=== PATIENT | female | born 1935 | race Caucasian/White ===

== ENCOUNTER 2016-10-24 08:41 | Outpatient (CLI) ==
[2014-01-26 10:56] VITALS: BMI 24.9
[2016-10-24 12:37] LABS: BASOPHILS # (AUTO) 0.1 K/uL (0-0.2); BASOPHILS % (AUTO) 0.9 % (0.0-3.0); EOSINOPHILS # (AUTO) 0.3 K/ul (0.0-0.7); EOSINOPHILS % (AUTO) 4.5 % (0.0-7.0); HEMATOCRIT 40.2 % (37.0-47.0); HEMOGLOBIN 13.2 g/dl (12.0-16.0); IMMATURE GRANULOCYTE % (AUTO) 0.3 % (0.0-5.0); LYMPHOCYTES # (AUTO) 2.7 K/uL (0.60-3.4); LYMPHOCYTES % (AUTO) 41.7 (10.0-50.0); MEAN CORPUSCULAR HEMOGLOBIN 28.6 pg (27.0-31.0); MEAN CORPUSCULAR HGB CONC 32.8 (31.8-35.4); MONOCYTES # (AUTO) 0.5 K/uL (0.4-2.0); MONOCYTES % (AUTO) 6.9 (0-10); NEUTROPHILS % (AUTO) 45.7; PLATELET COUNT 289 10^3/uL (140-440); RED BLOOD COUNT 4.62 10^6/ul (4.20-5.40); WHITE BLOOD COUNT 6.48 K/ul (4.6-10.2)
[2016-10-24 12:50] LABS: BILIRUBIN,URINE Negative (NEGATIVE); KETONES,URINE Negative (NEGATIVE); LEUKOCYTE ESTERASE ,URINE 1+ (NEGATIVE); NITRITE,URINE Negative (NEGATIVE); PROTEIN,URINE Negative (NEGATIVE); URINE, BLOOD Negative (NEGATIVE)
[2016-10-24 12:51] LABS: ADD URINE MICROSCOPIC YES
[2016-10-24 12:53] LABS: BACTERIA,URINE TRACE (NOT PRESENT)
[2016-10-24 12:55] LABS: ALBUMIN 3.7 g/dL (3.4-5.0); ALBUMIN/GLOBULIN RATIO 1.12; ANION GAP 11.8; BILIRUBIN,TOTAL 0.69 mg/dL (0.00-1.20); BUN/CREATININE RATIO 13.13; CALCIUM 9.2 mg/dL (8.2-10.2); CHOL/HDL RATIO 3.6 (4.5-5.5); CREATININE 0.99 mg/dL (0.60-1.30); POTASSIUM 3.8 mmol/L (3.5-5.10)
== END 2016-10-24 08:42 | disposition home or self-care (01) ==
LOC: LAB 08:41
PROVIDERS: ATTEND General Practice
DX: R73.9 Hyperglycemia, unspecified (principal); R73.03 Prediabetes; I10 Essential (primary) hypertension; E78.5 Hyperlipidemia, unspecified; Z79.899 Other long term (current) drug therapy
CPT/HCPCS: 36415; 80053; 80061; 81001; 83036; 85025

== ENCOUNTER 2017-03-06 11:49 | Outpatient (CLI) | payer OTHER ==
[2014-01-26 10:56] VITALS: BMI 24.9
[2017-03-06 12:40] LABS: BASOPHILS # (AUTO) 0.1 K/uL (0-0.2); BASOPHILS % (AUTO) 1.1 % (0.0-3.0); EOSINOPHILS # (AUTO) 0.3 K/ul (0.0-0.7); EOSINOPHILS % (AUTO) 5.2 % (0.0-7.0); HEMATOCRIT 39.5 % (37.0-47.0); HEMOGLOBIN 13.3 g/dl (12.0-16.0); IMMATURE GRANULOCYTE % (AUTO) 0.3 % (0.0-5.0); LYMPHOCYTES # (AUTO) 2.7 K/uL (0.60-3.4); LYMPHOCYTES % (AUTO) 41.2 (10.0-50.0); MEAN CORPUSCULAR HEMOGLOBIN 29.3 pg (27.0-31.0); MEAN CORPUSCULAR HGB CONC 33.7 (31.8-35.4); MONOCYTES # (AUTO) 0.5 K/uL (0.4-2.0); MONOCYTES % (AUTO) 7.5 (0-10); NEUTROPHILS # (AUTO) 2.9 K/ul (2.0-6.9); NEUTROPHILS % (AUTO) 44.7; PLATELET COUNT 284 10^3/uL (140-440); RED BLOOD COUNT 4.54 10^6/ul (4.20-5.40); WHITE BLOOD COUNT 6.55 K/ul (4.6-10.2)
[2017-03-06 12:49] LABS: BILIRUBIN,URINE Negative (NEGATIVE); KETONES,URINE Negative (NEGATIVE); LEUKOCYTE ESTERASE ,URINE 1+ (NEGATIVE); NITRITE,URINE Negative (NEGATIVE); PROTEIN,URINE Negative (NEGATIVE); URINE, BLOOD Negative (NEGATIVE)
[2017-03-06 12:53] LABS: ADD URINE MICROSCOPIC YES
[2017-03-06 12:57] LABS: ALBUMIN 3.8 g/dL (3.4-5.0); ALBUMIN/GLOBULIN RATIO 1.15; ANION GAP 12.9; BILIRUBIN,TOTAL 0.68 mg/dL (0.00-1.20); BUN/CREATININE RATIO 15.23; CALCIUM 9.3 mg/dL (8.2-10.2); CHOL/HDL RATIO 2.8 (4.5-5.5); CREATININE 1.05 mg/dL (0.60-1.30); POTASSIUM 3.9 mmol/L (3.5-5.10); TOTAL PROTEIN 7.1 g/dL (5.8-8.1)
[2017-03-06 13:02] LABS: BACTERIA,URINE TRACE (NOT PRESENT)
== END 2017-03-06 11:50 | disposition home or self-care (01) ==
LOC: LAB 11:49
PROVIDERS: ATTEND General Practice
DX: E78.5 Hyperlipidemia, unspecified (principal); I10 Essential (primary) hypertension; R73.03 Prediabetes; Z79.899 Other long term (current) drug therapy
CPT/HCPCS: 36415; 80053; 80061; 81001; 85025

== ENCOUNTER 2017-05-08 15:46 | Outpatient (CLI) ==
[2014-01-26 10:56] VITALS: BMI 24.9
[2017-05-08 16:07] LABS: FLU INTERNAL QC INTERNAL QC VALID; RAPID FLU A NEGATIVE (NEGATIVE); RAPID FLU B NEGATIVE (NEGATIVE)
[2017-05-08 16:12] LABS: BASOPHILS # (AUTO) 0.1 K/uL (0-0.2); BASOPHILS % (AUTO) 0.9 % (0.0-3.0); EOSINOPHILS # (AUTO) 0.3 K/ul (0.0-0.7); EOSINOPHILS % (AUTO) 3.6 % (0.0-7.0); HEMATOCRIT 40.9 % (37.0-47.0); HEMOGLOBIN 13.8 g/dl (12.0-16.0); IMMATURE GRANULOCYTE % (AUTO) 0.4 % (0.0-5.0); LYMPHOCYTES # (AUTO) 1.9 K/uL (0.60-3.4); LYMPHOCYTES % (AUTO) 23.6 (10.0-50.0); MEAN CORPUSCULAR HGB CONC 33.7 (31.8-35.4); MEAN CORPUSCULAR VOLUME 85.9 fl (81.0-99.0); MONOCYTES # (AUTO) 0.7 K/uL (0.4-2.0); MONOCYTES % (AUTO) 8.6 (0-10); NEUTROPHILS # (AUTO) 5.1 K/ul (2.0-6.9); NEUTROPHILS % (AUTO) 62.9; PLATELET COUNT 290 10^3/uL (140-440); RED BLOOD COUNT 4.76 10^6/ul (4.20-5.40); WHITE BLOOD COUNT 8.15 K/ul (4.6-10.2)
== END 2017-05-08 15:47 | disposition home or self-care (01) ==
LOC: LAB 15:46
PROVIDERS: ATTEND General Practice
DX: J02.9 Acute pharyngitis, unspecified (principal)
CPT/HCPCS: 36415; 85025; 87651; 87804; 87880

== ENCOUNTER 2017-09-19 13:33 | Outpatient (CLI) | payer OTHER ==
[2014-01-26 10:56] VITALS: BMI 24.9
[2017-09-19 13:46] LABS: FLU INTERNAL QC INTERNAL QC VALID; RAPID FLU A NEGATIVE (NEGATIVE); RAPID FLU B NEGATIVE (NEGATIVE)
== END 2017-09-19 13:34 | disposition home or self-care (01) ==
LOC: LAB 13:33
PROVIDERS: ATTEND General Practice
DX: J02.9 Acute pharyngitis, unspecified (principal); R05 Cough; R09.81 Nasal congestion; R68.83 Chills (without fever)
CPT/HCPCS: 87651; 87804; 87880

== ENCOUNTER 2017-09-25 22:36 | Outpatient (CLI) ==
[2014-01-26 10:56] VITALS: BMI 24.9
== END 2017-09-25 22:37 | disposition home or self-care (01) ==
LOC: NONPT 22:36
PROVIDERS: ATTEND General Practice
DX: R53.83 Other fatigue (principal)

== ENCOUNTER 2017-10-08 13:20 | Emergency (ER) ==
[2017-10-08 13:32] VITALS: TEMP 97.9; BMI 25.4
--- NOTE | 2017-10-08 14:20 | ED.PDOC ---
General ED Provider: Dr. KYLAH GONZALEZ Chief Complaint: Fall Stated Complaint: Was walking at home in a [place] [address], stumpted her foot against a metal plate in the floor and fell forward stiking forhead against a wooded shelf. Denied LOC Time Seen by Physician: 02:00 Mode of Arrival: Ambulance (Sustained a fall in her residence resultingind a closed head injury) Information Source: Patient, EMT Exam Limitations: No limitations [facility] and Triage Documentation Reviewed and Agree: Yes Reviewed sepsis parameters & appropriate labs ordered?: Yes System Inflammatory Response Syndrome: Not Applicable Sepsis Protocol: For patient's 13 years and over: Temp is 96.8 and below OR 101 and greater Pulse >90 BPM Resp >20/minute Acutely Altered Mental Status Are patient's symptoms suggestive of a new infection, such as: -Pneumonia -Skin, Soft Tissue -Endocarditis -UTI -Bone, Joint Infection -Implantable Device -Acute Abdominal Infection -Wound Infection -Meningitis -Blood Stream Catheter Infection -Unknown System Inflammatory Response Syndrome: Not Applicable Review of Systems - Review Of Systems Constitutional: Reports: No symptoms Eyes: Reports: No symptoms Ears, Nose, Mouth, Throat: Reports: No symptoms Respiratory: Reports: No symptoms Cardiac: Reports: Lightheadedness. Denies: Chest pain, Irregular heart rate, Palpitations GI: Reports: No symptoms : Reports: No symptoms Musculoskeletal: Reports: Neck pain, Other (forehead hematoma /contusion) Skin: Reports: No symptoms Neurological: Reports: Headache. Denies: Anxiety, Depressed, Emotional problems , Cognitive dysfunction, Numbness, [place] seizures Endocrine: Reports: No symptoms Hematologic/Lymphatic: Reports: No symptoms All Other Systems: Reviewed and Negative Past Medical History - Past Medical History Previously Healthy: Yes Endocrine: Reports: None Cardiovascular: Reports: Hypertension Respiratory: Reports: None Hematological: Reports: None Gastrointestinal: Reports: None Genitourinary: Reports: None Neuro/Psych: Reports: None Musculoskeletal: Reports: None Cancer: Reports: None Last Menstrual Period: menopause - Surgical History General Surgical History: Reports: None - Social History Smoking Status: Never smoker Hx Substance Use: No Alcohol Screening: None - Immunizations Tetanus Shot up to Date: Yes Physical Exam - Physical Exam Appearance: Well-appearing Ill-appearing: Mild Pain Distress: None Eyes: MICHAEL, EOMI, Conjunctiva clear ENT: Ears normal, Nose normal, Oropharynx normal Neck: Supple Respiratory: Airway patent, Breath sounds clear, Breath sounds equal Cardiovascular: RRR, Pulses normal, No rub, No murmur GI/: Soft, Nontender, No masses, Bowel sounds normal Musculoskeletal: Normal strength, ROM intact, No edema, No calf tenderness Skin: Warm, Dry, Normal color Neurological: Sensation intact, Motor intact Psychiatric: Affect appropriate, Mood appropriate Re-Evaluation - Re-Evaluation Time of Re-Evaluation: 16:00 Status: Improved Vital Signs Stable: Yes Appearance: NAD Lungs: Clear Skin: Warm and Dry Neuro: Alert and Oriented X3 CV: Other (slightly dizzy upon standing. Reclined and checked orthostatics after 15 minutes-tolerated well) Course - Course Hematology/Chemistry: 10/08/17 14:32 10/08/17 14:32 Orders, Labs, Meds: Lab Review 10/08/17 10/08/17 14:32 14:32 WBC 8.61 RBC 4.20 Hgb 12.5 Hct 36.1 L MCV 86.0 MCH 29.8 MCHC 34.6 RDW Coeff of Catherine 13.1 Plt Count 261 Immature Gran % (Auto) 0.2 Neut % (Auto) 58.9 Lymph % (Auto) 29.4 [place] % (Auto) 7.4 Eos % (Auto) 3.3 Baso % (Auto) 0.8 Immature Gran # (Auto) 0.0 Neut # 5.1 Lymph # 2.5 [place] # 0.6 Eos # 0.3 Baso # 0.1 Sodium 141 Potassium 4.1 Chloride 108 H Carbon Dioxide 27 Anion Gap 10.1 BUN 15 Creatinine 0.87 Estimated GFR (MDRD) 63.00 BUN/Creatinine Ratio 17.24 Glucose 101 Calcium 9.0 Total Bilirubin 0.3 AST 22 ALT 22 Alkaline Phosphatase 88 Total Protein 6.8 Albumin 3.4 Globulin 3.4 Albumin/Globulin Ratio 1.00 Orders Category Date Time Status EKG-(ED ONLY) Stat CARDIO 10/08/17 14:23 Completed NPO REMINDER: IMAGING ONCE CARE 10/08/17 14:23 Completed Orthostatic [ED ORTHOSTATIC VITAL SIGNS] Q20MIN EMERGENCY 10/08/17 16:15 Active CBC W/ AUTO DIFF Stat LAB 10/08/17 14:32 Completed CMP [COMPREHENSIVE METABOLIC PANEL] Stat LAB 10/08/17 14:[address] CERVICAL SPINE W/O CONTRAST Stat RADS 10/08/17 14:[address] HEAD W/O CONTRAST Stat RADS 10/08/17 14:23 Completed Vital Signs: Temp Pulse Resp BP Pulse Ox 10/08/17 16:17 68 146/79 H 10/08/17 13:21 97.9 F 72 20 127/75 95 Departure - Departure Time of Disposition: 16:35 Disposition: HOME SELF-CARE Discharge Problem: Fall, Forehead contusion Instructions: Head Injury (ED) Condition: Good Pt referred to PMD for follow-up: Yes (1 week) Allergies/Adverse Reactions: Allergies No Known Drug Allergies Allergy (Verified 10/08/17 13:28) Home Medications: Ambulatory Orders Omeprazole [Prilosec] 20 mg PO QDAC 11/28/13 Simvastatin 40 mg PO BEDTIME 11/28/13 Folic Acid 1 mg PO DAILY 04/22/15 Vitamin E 400 unit PO DAILY 04/22/15 Ascorbate Calcium [Vitamin C] 500 mg PO DAILY 06/28/15
--- NOTE | 2017-10-08 15:00 | CT ---
EXAM: CT of the head without contrast History: Head trauma. Technique: Multiplanar CT images through the head were obtained without the administration of IV con trast Findings: Fluid and mucosal thickening within the left maxillary sinus. Near-complete opacification of the right maxillary sinus. Small left mastoid effusion. No acute calvarial abnormalities. Smal l to moderate frontal scalp hematoma. Intracranially the ventricular and cisternal spaces are normal in size, shape and configuration for a patient of this age. No dominant mass or midline shift. No hydrocephalous. No acute intracranial h emorrhage or abnormal extraaxial fluid collections. Impression: 1. No acute intracranial process. 2. Frontal scalp hematoma. 3. Paranasal sinusitis
--- NOTE | 2017-10-08 15:03 | CT ---
EXAM: CT of the cervical spine without contrast History: Head and neck trauma. Technique: Multiplanar CT images through the cervical spine were obtained without the administration of IV contrast Findings: The visualized upper lungs demonstrate scarring. The visualized airway remains patent. L eft mastoid effusion. No acute fracture or subluxation. No prevertebral soft tissue swelling. Predental space is not wide darion. Moderate disc space narrowing at C5-6 and C6-7 with endplate sclerosis and osteophyte formation . Bony spinal canal is not significantly compromised. Multilevel bilateral bony neural foraminal na rrowing secondary to uncovertebral and facet hypertrophy which is moderate to severe on the left at C 5-6. Impression: No acute osseous abnormality of the cervical spine. Degenerative changes.
[2017-10-08 16:18] VITALS: BP 245/79
== END 2017-10-08 17:00 | disposition home or self-care (01) ==
LOC: ED 13:20
DX: S00.83XA Contusion of other part of head, initial encounter (principal); R51 Headache; R42 Dizziness and giddiness; I10 Essential (primary) hypertension; W19.XXXA Unspecified fall, initial encounter
CPT/HCPCS: 36415; 80053; 85025; 93005; 93010; 99283

== ENCOUNTER 2018-03-03 11:39 | Outpatient (CLI) | END 2018-03-03 11:40 | disposition home or self-care (01) | LOC: FCC-LAB 11:39 | PROVIDERS: ATTEND General Practice | DX: E78.5 Hyperlipidemia, unspecified (principal); R73.03 Prediabetes; I10 Essential (primary) hypertension; Z79.899 Other long term (current) drug therapy | CPT/HCPCS: 36415; 80053; 80061; 81001; 83036; 84443; 85025; 87086 ==

== ENCOUNTER 2018-10-02 14:56 | Outpatient (CLI) | END 2018-10-02 14:57 | disposition home or self-care (01) | LOC: LAB 14:56 → RHC-LAB 14:57 | PROVIDERS: ATTEND Nurse Practitioner Family | DX: J02.9 Acute pharyngitis, unspecified (principal) | CPT/HCPCS: 87651 ==

== ENCOUNTER 2021-07-23 11:07 | Inpatient (IN) ==
[2021-07-23] MEDS ORDERED: SOLU-MEDROL 125 MG IVP ONE (11:32)
[2021-07-23] MEDS ORDERED: VENTOLIN HFA (PER PUFF-WITH SPACER) IH ONE (11:32)
[2021-07-23] MEDS ORDERED: SODIUM CHLORIDE 500 ML IV STA (11:38)
[2021-07-23 11:58] LABS: BASOPHILS % (AUTO) 0.3 % (0.0-3.0); HEMATOCRIT 33.4 % (37.0-47.0); HEMOGLOBIN 11.6 g/dl (12.0-16.0); IMMATURE GRANULOCYTE % (AUTO) 0.7 % (0.0-5.0); LYMPHOCYTES # (AUTO) 1.2 K/uL (0.60-3.4); LYMPHOCYTES % (AUTO) 20.3 (10.0-50.0); MEAN CORPUSCULAR HEMOGLOBIN 29.1 pg (27.0-31.0); MEAN CORPUSCULAR HGB CONC 34.7 (31.8-35.4); MEAN CORPUSCULAR VOLUME 83.7 fl (81.0-99.0); MONOCYTES # (AUTO) 0.6 K/uL (0.4-2.0); MONOCYTES % (AUTO) 9.5 (0-10); NEUTROPHILS # (AUTO) 4.2 K/ul (2.0-6.9); NEUTROPHILS % (AUTO) 69.2 % (42.2-75.2); PLATELET COUNT 188 10^3/uL (140-440); RDW COEFFICIENT OF VARIATION 13.3 % (11.6-14.8); RED BLOOD COUNT 3.99 10^6/ul (4.20-5.40); WHITE BLOOD COUNT 6.12 K/ul (4.6-10.2)
[2021-07-23] MEDS ORDERED: SPIRIVA IH SCH (12:00)
[2021-07-23] MEDS ORDERED: ATROVENT HFA INHALER (PER PUFF-WITH SPACER) IH ONE (12:00)
[2021-07-23 12:19] LABS: ALANINE AMINOTRANSFERASE 39.4 U/L (0-35); ALBUMIN 3.61 g/dL (3.5-5.0); ALKALINE PHOSPHATASE 60.1 U/L (53-141); ASPARTATE AMINO TRANSFERASE 63.2 U/L (14-36); BILIRUBIN,TOTAL 0.34 mg/dL (0.2-1.3); BLOOD UREA NITROGEN 14.4 mg/dL (7-17); CALCIUM 8.73 mg/dL (8.4-10.2); CHLORIDE 102.8 mmol/L (98-107); CREATININE 0.92 mg/dL (0.60-1.30); GLUCOSE 109.3 mg/dL (74-106); POTASSIUM 3.85 mmol/L (3.5-5.1); SODIUM 133.8 mmol/L (134.5-145); TOTAL PROTEIN 6.62 g/dL (6.3-8.2)
--- NOTE | 2021-07-23 12:21 | CT ---
EXAM: CT chest without contrast HISTORY: Shortness of breath and COVID-19 COMPARISON: Chest x-ray 07/17/[address] chest 01/03/2018 TECHNIQUE: Serial axial images of the chest were obtained from the lung apices to the upper abdomen without contrast. These were viewed in multiple planes. FINDINGS: The thyroid is normal. The visualized vessels demonstrate mild calcific atherosclerotic d isease without aneurysm or stenosis. The heart is normal in size without pericardial effusion. Ther e are no pathologically enlarged mediastinal or hilar lymph nodes. There is no pneumothorax or effusion. There is patchy nodular ground-glass and both lungs most prono unced in the periphery. There is no discrete consolidation. The airways are patent. Limited views of the soft tissues in the upper abdomen are unremarkable. There is degenerative disea se of the spine. IMPRESSION: 1. Patchy nodular ground-glass and both lungs are suggestive of pneumonia. 2. Mild calcific atherosclerotic disease. All CT scans are performed using dose optimization techniques as appropriate to the performed exam an d include at least one of the following: Automated exposure control, adjustment of the mA and/or kV according t o size, and the use of iterative reconstruction technique.
[2021-07-23 12:28] LABS: ABG PH 7.64 (7.35-7.45); BEecf -0.4 (-2.0-3.0); COHb 1.3 (0.5-1.5); HCO3 20.5 (21-28); MetHb 0.6 (0-1.5); TCO2 21.1 (19-24); sO2 95.8 % (94-98)
[2021-07-23 12:29] LABS: ABG O2 HGB 94.9 % (95-100); tHb 11.9 g/dl (11.7-17.4)
[2021-07-23 12:31] LABS: TROPONIN I < 0.012 ng/ml (0.0000-0.120)
[2021-07-23] MEDS ORDERED: TYLENOL PO PRN (14:36)
[2021-07-23 14:58] VITALS: BMI 23.6
[2021-07-23] MEDS ORDERED: PRILOSEC PO PRN (14:59)
--- NOTE | 2021-07-23 15:04 | ED.PDOC ---
General ED Provider: Dr. DEJAH HOLT MD Chief Complaint: Shortness of Air Stated Complaint: weakness and increased SOB. Pt has the covid-19 pneumonia. Time Seen by Provider: 07/23/21 11:10 Mode of Arrival: Wheelchair Information Source: Patient and Family Exam Limitations: No limitations Primary Care Provider: VAL JIMÉNEZ APRN Nursing and Triage Documentation Reviewed and Agree: Yes Does patient meet sepsis criteria?: No If yes, has appropriate treatment been initiated?: No System Inflammatory Response Syndrome: Not Applicable Sepsis Protocol: For patient's 13 years and over: Temp is 96.8 and below OR 101 and greater Pulse >90 BPM Resp >20/minute Acutely Altered Mental Status Are patient's symptoms suggestive of a new infection, such as: -Pneumonia -Skin, Soft Tissue -Endocarditis -UTI -Bone, Joint Infection -Implantable Device -Acute Abdominal Infection -Wound Infection -Meningitis -Blood Stream Catheter Infection -Unknown Respiratory Complaint Exam Shortness of Air Complaint/Exam Onset/Duration: worse SOB x 3 days. Symptoms Are: Still present Timing: Constant Initial Severity: Mild Current Severity: Moderate Character: Reports Dyspnea at rest and Dyspnea on exertion Aggravating: Reports None Alleviating: Reports Bronchodilators Associated Signs and Symptoms: Reports Cough, Wheezing and Labored breathing History of Healthcare-Acquired Pneumonia: No Home Oxygen Use: No Recent Stress Test: No Respiratory Distress: Mild Stridor Present: No Tracheal Deviation: No Subcutaneous Emphysema: No Accessory Muscle Use: Yes Retractions: Intercostal Diminished Breath Sounds: Yes Unable to Speak Full Sentences: No Fatigue: No Leg Swelling: No Wing's Sign Present: No Grunting Respirations: No Kussmaul Respirations: No Differential Diagnoses: CHF, COPD Exacerbation, Pneumonia, SARS, Bronchitis, Bronchospasm and URI Quality Indicators For Pneumonia/CAP: Antibiotics in 6hr-admit, SpO2 assessed and Vital signs Review of Systems Review Of Systems Constitutional: Reports Weakness and Loss of appetite Eyes: Reports No symptoms Ears, Nose, Mouth, Throat: Reports No symptoms Respiratory: Reports No symptoms and Cough Cardiac: Reports No symptoms GI: Reports No symptoms and Poor appetite : Reports No symptoms Musculoskeletal: Reports No symptoms Skin: Reports No symptoms Neurological: Reports No symptoms Endocrine: Reports No symptoms Hematologic/Lymphatic: Reports No symptoms All Other Systems: Reviewed and Negative [facility] Medical History Colonoscopy refused Gastroesophageal reflux disease Hyperlipidemia Mammogram declined Family History Mother Diabetes, Onset Age: 90 FATHER Diabetes, Onset Age: 50 Social History Smoking and tobacco status: Never smoker Alcohol intake: never Counseling given: No Counseling provided: none Substance use type: does not use Counseling given: No Counseling provided: none Pat/rastafarian: OTHER Special pat needs: No Agree to transfusion: Yes Household members: none Marital status: W / Lives independently: Yes service: No shelter: No Current occupational status: retired Current occupational exposures/hazards: No History of recent travel: No Sexually active: No Do you think of yourself as: straight/heterosexual Current gender identity: female Seatbelt use: always Surgical History History of tubal ligation Status post myringotomy with insertion of tube Female Reproductive History Menstrual Hx Hysterectomy: No Hx Tubal Ligation: Yes Physical Exam Physical Exam Appearance: Reports Ill-appearing and Well-nourished Ill-appearing: Mild Pain Distress: None Eyes: Reports MICHAEL, EOMI and Conjunctiva clear ENT: Reports Ears normal, Nose normal and Oropharynx normal Neck: Supple Respiratory: Reports Airway patent, Crackles, Rhonchi, Wheezes and Retractions Cardiovascular: Reports RRR, Pulses normal, No rub and No murmur GI/: Reports Soft, Nontender, No masses, Bowel sounds normal and No Organomegaly Musculoskeletal: Reports Normal strength, ROM intact, No edema and No calf tenderness Skin: Reports Warm, Dry and Normal color Neurological: Reports Sensation intact, Motor intact, Reflexes intact, Cranial nerves intact, Alert and Oriented Psychiatric: Reports Affect appropriate and Mood appropriate Interpretation Radiology Interpretation Radiology Interpretation By: Radiologist Exam Interpreted: CT Scan Xray Comments: covid-19 pneumonia. Re-Evaluation Re-Evaluation Time of Re-Evaluation: 12:05 Pain Level: 0 Appearance: NAD Lungs: Other (crackles, wheezes and rhonchi.) Skin: Warm and Dry Neuro: Alert and Oriented X3 CV: RRR Critical Care Note Critical Care Note Total Critical Care Time (mins): 30 Course Course Hematology/Chemistry: 07/23/21 11:52 07/23/21 11:52 Orders, Labs, Meds: Lab Review 07/23/21 07/23/21 07/23/21 11:52 11:52 11:52 WBC 6.12 RBC 3.99 L Hgb 11.6 L Hct 33.4 L MCV 83.7 MCH 29.1 MCHC 34.7 RDW Coeff of Catherine 13.3 Plt Count 188 Immature Gran % (Auto) 0.7 Neut % (Auto) 69.2 Lymph % (Auto) 20.3 [place] % (Auto) 9.5 Eos % (Auto) 0.0 Baso % (Auto) 0.3 Neut # (Auto) 4.2 Lymph # (Auto) 1.2 [place] # (Auto) 0.6 Eos # (Auto) 0.0 Baso # (Auto) 0.0 Immature Gran # (Auto) 0.0 Puncture Site Base Excess O2 Saturation ABG pH ABG pCO2 ABG pO2 ABG HCO3 ABG Total CO2 [place] Test Hemoglobin Oxyhemoglobin Carboxyhemoglobin Total Hemoglobin FiO2 % Sodium 133.8 L Potassium 3.85 Chloride 102.8 Carbon Dioxide 23.0 Anion Gap 11.85 BUN 14.4 Creatinine 0.92 Estimated GFR (MDRD) 58.00 BUN/Creatinine Ratio 15.65 Glucose 109.3 H Lactic Acid 1.84 Calcium 8.73 Total Bilirubin 0.34 AST 63.2 H ALT 39.4 H Alkaline Phosphatase 60.1 Troponin I < 0.012 NT-Pro-B Natriuret Pep 227.000 Total Protein 6.62 Albumin 3.61 Globulin 3.01 Albumin/Globulin Ratio 1.19 07/23/21 11:55 WBC RBC Hgb Hct MCV MCH MCHC RDW Coeff of Catherine Plt Count Immature Gran % (Auto) Neut % (Auto) Lymph % (Auto) [place] % (Auto) Eos % (Auto) Baso % (Auto) Neut # (Auto) Lymph # (Auto) [place] # (Auto) Eos # (Auto) Baso # (Auto) Immature Gran # (Auto) Puncture Site Rrad Base Excess -0.4 O2 Saturation 95.8 ABG pH 7.64 H* ABG pCO2 19.0 L ABG pO2 63.0 L ABG HCO3 20.5 L ABG Total CO2 21.1 [place] Test Pos Hemoglobin 0.6 Oxyhemoglobin 94.9 L Carboxyhemoglobin 1.3 Total Hemoglobin 11.9 FiO2 % 21.0 Sodium Potassium Chloride Carbon Dioxide Anion Gap BUN Creatinine Estimated GFR (MDRD) BUN/Creatinine Ratio Glucose Lactic Acid Calcium Total Bilirubin AST ALT Alkaline Phosphatase Troponin I NT-Pro-B Natriuret Pep Total Protein Albumin Globulin Albumin/Globulin Ratio Orders Category Date Time Status ABG DRAW REQUEST Stat CARDIO 07/23/21 11:33 Completed EKG-(ED ONLY) Stat CARDIO 07/23/21 11:32 Completed METERED DOSE INHALATION Routine CARDIO 07/23/21 11:38 Completed ED IV/MEDIPORT/POWERPORT .ONCE EMERGENCY 07/23/21 11:38 Active ABG COOX Stat LAB 07/23/21 11:55 Completed CBC W/ AUTO DIFF Stat LAB 07/23/21 11:52 Completed COMPREHENSIVE METABOLIC PANEL Stat LAB 07/23/21 11:52 Completed COVID-19 ANTIGEN TEST Stat LAB 07/23/21 Ordered LACTIC ACID Stat LAB 07/23/21 11:52 Completed NT-PROBNP Stat LAB 07/23/21 11:52 Completed TROPONIN I Stat LAB 07/23/21 11:52 Completed 0.9 % Sodium Chloride [Saline Flush] MEDS 07/23/21 11:38 Active 1 syr IVF PRN PRN Albuterol Inhaler(with Spacer) [Ventolin Hfa (Per Puff- MEDS 07/23/21 11:32 Discontinued with Spacer)] 2 puff IH ONCE ONE Ipratropium Inhaler(Spacer) [Atrovent Hfa Inhaler (Per MEDS 07/23/21 12:00 Discontinued Puff-with Spacer)] 2 puff IH ONCE ONE Methylprednisolone Sod Succ/Pf [Solu-Medrol 125 mg] MEDS 07/23/21 11:32 Discontinued 125 mg IVP ONCE ONE Sodium Chloride 0.9% [Sodium Chloride] 500 ml MEDS 07/23/21 11:[address] CHEST W/O CONTRAST Stat RADS 07/23/21 11:32 Completed Medications Generic Name Dose Route Start Last Admin Trade Name Freq PRN Reason Stop Dose Admin Acetaminophen 650 mg 07/23/21 14:36 Acetaminophen 325 Mg Tablet PO Q8H PRN Mild/Moderate Pain Albuterol Sulfate 2 puff 07/23/21 20:00 Albuterol Sulfate (Ventolin Hfa) 18 Gm 1 Puff With Spacer IH RTQID LIZANDRO Azithromycin 500 mg 07/23/21 15:00 Azithromycin 250 Mg Tablet PO 07/26/21 14:59 DAILY [facility] Folic Acid 1 mg 07/24/21 09:00 Folic Acid 1 Mg Tablet PO DAILY [facility] Sodium Chloride 1,000 mls @ 75 mls/hr 07/23/21 15:00 Sodium Chloride IV .[id number] [facility] CEFTRIAXONE/D5W 1 GM PREMIX 1 gm in 50 mls @ 75 mls/hr 07/23/21 15:00 Rocephin 1 Gm/50 Ml D5w IV 07/26/21 14:59 DAILY [facility] REMDESIVIR SOLUTION 100 mg/ 270 mls @ 270 mls/hr 07/24/21 09:00 Sodium Chloride IV DAILY [facility] Ipratropium [place] 2 puff 07/23/21 20:00 Ipratropium [place] 12.9 Gm Hfa Inhaler Per Puff With Spacer IH RTQID [facility] Levothyroxine Sodium 25 mcg 07/23/21 15:00 Levothyroxine Sodium 25 Mcg Tablet PO QDAY [facility] Methylprednisolone Sodium Succinate 125 mg 07/23/21 21:00 Methylprednisolone Sod Succ/Pf 125 Mg/2 Ml Vial IVP Q8HR [facility] Non-Formulary Medication 500 mg 07/24/21 09:00 Ascorbate Calcium (Vitamin C) PO DAILY [facility] Non-Formulary Medication 325 mg 07/25/21 09:00 Aspirin,Buffd-Calcium Carb-Mag PO EVERY OTHER DAY [facility] Non-Formulary Medication 2 gm 07/23/21 21:00 Icosapent Ethyl PO BID [facility] Omeprazole 20 mg 07/23/21 14:59 Omeprazole 20 Mg Capsule.Dr PO QDAC PRN Heartburn Simvastatin 40 mg 07/23/21 15:00 Simvastatin 40 Mg Tablet PO .bedtime [facility] Sodium Chloride 1 syr 07/23/21 11:38 0.9% Sodium Chloride 10 Ml Disp.Syrin IVF PRN PRN To flush IV Discontinued Medications Generic Name Dose Route Start Last Admin Trade Name Freq PRN Reason Stop Dose Admin Albuterol Sulfate 2 puff 07/23/21 11:32 07/23/21 12:29 Albuterol Sulfate (Ventolin Hfa) 18 Gm 1 Puff With Spacer IH 07/23/21 11:33 2 puff ONCE ONE Administration Sodium Chloride 500 mls @ 500 mls/hr 07/23/21 11:38 07/23/21 12:40 Sodium Chloride IV 07/23/21 12:37 500 mls/hr BOLUS STA Administration Ipratropium [place] 2 puff 07/23/21 12:00 07/23/21 12:29 Ipratropium [place] 12.9 Gm Hfa Inhaler Per Puff With Spacer IH 07/23/21 12:01 2 puff ONCE ONE Administration Methylprednisolone Sodium Succinate 125 mg 07/23/21 11:32 07/23/21 12:40 Methylprednisolone Sod Succ/Pf 125 Mg/2 Ml Vial IVP 07/23/21 11:33 125 mg ONCE ONE Administration Vital Signs: Temp Pulse Resp BP Pulse Ox 07/23/21 12:30 99 07/23/21 11:07 97.8 F 83 16 119/69 96 Discharge Plan Discharge Patient Disposition: ADMITTED INPATIENT Discharge Problem: Pneumonia due to 2019-nCoV, Weakness generalized ED Provider: DEJAH HOLT Condition: Stable Physician Progress Note: []Pt for admission: see orders.
[2021-07-23] MEDS: ZITHROMAX PO SCH (15:09)
[2021-07-23] MEDS: ROCEPHIN 1 GM/50 ML D5W 1 GM/50 ML BAG IV SCH (15:09)
[2021-07-23] MEDS: SODIUM CHLORIDE 1,000 ML IV SCH (15:15)
[2021-07-23] MEDS: SYNTHROID PO SCH (15:17)
[2021-07-23 16:11] LABS: MOLECULAR FLU A NEGATIVE BY NAAT (NEGATIVE); MOLECULAR FLU B NEGATIVE BY NAAT (NEGATIVE)
[2021-07-23] MEDS: ATROVENT HFA INHALER (PER PUFF-WITH SPACER) IH SCH (20:10)
[2021-07-23] MEDS: VENTOLIN HFA (PER PUFF-WITH SPACER) IH SCH (20:10)
[2021-07-23] MEDS: SOLU-MEDROL 125 MG IVP SCH (21:49)
[2021-07-23] MEDS: ZOCOR PO SCH (21:49)
[2021-07-24 00:35] LABS: BILIRUBIN,URINE Negative (NEGATIVE); CLARITY,URINE Clear (CLEAR); COLOR,URINE Yellow (YELLOW); GLUCOSE, URINE (UA) 2+ (NEGATIVE); KETONES,URINE Trace (NEGATIVE); LEUKOCYTE ESTERASE ,URINE Negative (NEGATIVE); NITRITE,URINE Negative (NEGATIVE); PROTEIN,URINE Negative (NEGATIVE); URINE, BLOOD Negative (NEGATIVE); UROBILINOGEN,URINE 0.2 (0.2)
[2021-07-24] MEDS: ATROVENT HFA INHALER (PER PUFF-WITH SPACER) IH SCH ×4 (04:55→20:00)
[2021-07-24] MEDS: VENTOLIN HFA (PER PUFF-WITH SPACER) IH SCH ×4 (04:55→20:00)
[2021-07-24] MEDS: SODIUM CHLORIDE 1,000 ML IV SCH ×2 (04:59→19:25)
[2021-07-24] MEDS: SOLU-MEDROL 125 MG IVP SCH (05:48)
[2021-07-24] MEDS: SYNTHROID PO SCH (06:04)
[2021-07-24 08:34] LABS: PROTHROMBIN TIME 9.6 SEC (9.3-11.0)
[2021-07-24] MEDS ORDERED: VEKLURY 200 MG in SODIUM CHLORIDE 250 ML IV ONE ×4 (09:00)
[2021-07-24] MEDS: FOLIC ACID PO SCH (09:46)
[2021-07-24] MEDS: ZITHROMAX PO SCH (09:47)
[2021-07-24] MEDS: OMEGA-3 FISH OIL PO SCH ×2 (09:47→20:54)
[2021-07-24] MEDS: VITAMIN C PO SCH (09:47)
[2021-07-24] MEDS: ROCEPHIN 1 GM/50 ML D5W 1 GM/50 ML BAG IV SCH (09:48)
[2021-07-24] MEDS: ASPIRIN EC PO SCH (09:54)
[2021-07-24] MEDS ORDERED: VEKLURY 100 MG in SODIUM CHLORIDE 250 ML IV ONE (12:00)
[2021-07-24] MEDS: DECADRON IM SCH (12:36)
[2021-07-24] MEDS: PEPCID PO SCH ×2 (12:39→20:54)
[2021-07-24] MEDS: VITAMIN D PO SCH (12:40)
[2021-07-24] MEDS: ZOCOR PO SCH (20:54)
[2021-07-25] MEDS: VENTOLIN HFA (PER PUFF-WITH SPACER) IH SCH ×4 (04:55→20:05)
[2021-07-25] MEDS: ATROVENT HFA INHALER (PER PUFF-WITH SPACER) IH SCH ×4 (04:55→20:00)
[2021-07-25 04:56] LABS: ABG O2 HGB 92.9 % (95-100); ABG PH 7.49 (7.35-7.45); BEecf -2.7 (-2.0-3.0); HCO3 20.6 (21-28); MetHb 0.7 (0-1.5); TCO2 21.4 (19-24); tHb 10.6 g/dl (11.7-17.4)
[2021-07-25] MEDS: SYNTHROID PO SCH (05:40)
[2021-07-25] MEDS: PEPCID PO SCH ×2 (05:40→17:13)
[2021-07-25] MEDS: SODIUM CHLORIDE 1,000 ML IV SCH ×2 (08:42→22:11)
[2021-07-25] MEDS: ROCEPHIN 1 GM/50 ML D5W 1 GM/50 ML BAG IV SCH (08:43)
[2021-07-25] MEDS ORDERED: NON-FORMULARY MEDICATION (Aspirin,Buffd-Calcium Carb-Mag 325 MG tablet) PO SCH (09:00)
[2021-07-25] MEDS: VITAMIN D PO SCH (09:01)
[2021-07-25] MEDS: VITAMIN C PO SCH (09:02)
[2021-07-25] MEDS: OMEGA-3 FISH OIL PO SCH ×2 (09:02→20:51)
[2021-07-25] MEDS: FOLIC ACID PO SCH (09:02)
[2021-07-25] MEDS: DECADRON IM SCH (09:02)
[2021-07-25] MEDS: ZITHROMAX PO SCH (09:02)
--- NOTE | 2021-07-25 10:01 | ED.PDOC ---
General ED Provider: Dr. KYLAH GONZALEZ Chief Complaint: Shortness of Air Stated Complaint: Shortness of breath with minimal activity and at rest, Cough and congestion Time Seen by Provider: 07/23/21 11:10 Mode of Arrival: Wheelchair Information Source: Patient and Family Exam Limitations: No limitations Primary Care Provider: VAL JIMÉNEZ APRN Nursing and Triage Documentation Reviewed and Agree: Yes Does patient meet sepsis criteria?: No Sepsis Protocol: For patient's 13 years and over: Temp is 96.8 and below OR 101 and greater Pulse >90 BPM Resp >20/minute Acutely Altered Mental Status Are patient's symptoms suggestive of a new infection, such as: -Pneumonia -Skin, Soft Tissue -Endocarditis -UTI -Bone, Joint Infection -Implantable Device -Acute Abdominal Infection -Wound Infection -Meningitis -Blood Stream Catheter Infection -Unknown Respiratory Complaint Exam Shortness of Air Complaint/Exam Onset/Duration: 7 days Symptoms Are: Still present Timing: Intermittent Initial Severity: Severe Current Severity: Moderate Character: Reports Dyspnea at rest, Dyspnea on exertion and Orthopnea Aggravating: Reports Movement and Recumbent position Alleviating: Reports Bronchodilators, Oxygen and Upright position Associated Signs and Symptoms: Reports Cough and Wheezing Related History: Reports Similar episode History of Healthcare-Acquired Pneumonia: No Pulmonary Embolism Risk Factors: Reports None Cardiac Risk Factors: Reports None Pseudomonas Risk Factors: Reports None Tuberculosis Risk Factors: Reports None Recent Stress Test: No Recent Echo/LV Function: No Respiratory Distress: None Stridor Present: No Tracheal Deviation: No Subcutaneous Emphysema: No Accessory Muscle Use: No Retractions: Not Present Diminished Breath Sounds: Yes Unable to Speak Full Sentences: No Fatigue: Yes Leg Swelling: No Wing's Sign Present: No Grunting Respirations: No Kussmaul Respirations: No Differential Diagnoses: COPD Exacerbation and Other (COVID ) Review of Systems Review Of Systems Ears, Nose, Mouth, Throat: Reports No symptoms Respiratory: Reports Cough, Short of air and Wheezing Cardiac: Reports No symptoms GI: Reports No symptoms : Reports No symptoms Musculoskeletal: Reports No symptoms Skin: Reports No symptoms Neurological: Reports No symptoms Endocrine: Reports No symptoms Hematologic/Lymphatic: Reports No symptoms All Other Systems: Reviewed and Negative [facility] Medical History (Updated 07/26/21 @ 08:34 by EDEN SALDAÑA, RN) COVID-19 Elevated TSH Gastroesophageal reflux disease Hyperlipidemia Hypertension Pre-diabetes Family History Mother Diabetes, Onset Age: 90 FATHER Diabetes, Onset Age: 50 Social History Smoking and tobacco status: Never smoker Alcohol intake: never Counseling given: No Counseling provided: none Substance use type: does not use Counseling given: No Counseling provided: none Pat/religious: OTHER Special pat needs: No Agree to transfusion: Yes Household members: none Marital status: W / Lives independently: Yes service: No care home: No Current occupational status: retired Current occupational exposures/hazards: No History of recent travel: No Sexually active: No Do you think of yourself as: straight/heterosexual Current gender identity: female Seatbelt use: always Surgical History History of tubal ligation Status post myringotomy with insertion of tube Female Reproductive History Menstrual Hx Hysterectomy: No Hx Tubal Ligation: Yes Physical Exam Physical Exam Appearance: Reports Ill-appearing and No pain distress Ill-appearing: Mild Pain Distress: Not Applicable Eyes: Reports MICHAEL, EOMI and Conjunctiva clear ENT: Reports Ears normal, Nose normal and Oropharynx normal Neck: Nonsupple Respiratory: Reports Airway patent, Breath sounds clear, Breath sounds equal, Breath sounds diminished and Wheezes Cardiovascular: Reports RRR, Pulses normal, No rub and No murmur GI/: Reports Soft, Nontender and No masses Musculoskeletal: Reports Normal strength, ROM intact and No edema Skin: Reports Warm and Dry Neurological: Reports Sensation intact, Motor intact, Reflexes intact, Cranial nerves intact, Alert, Oriented and Alert to pain Psychiatric: Reports Affect appropriate, Mood appropriate and Anxious Critical Care Note Critical Care Note Total Critical Care Time (mins): 0 Course Course Hematology/Chemistry: 07/23/21 11:52 07/23/21 11:52 Orders, Labs, Meds: Lab Review 07/23/21 07/23/21 07/23/21 11:52 11:52 11:52 WBC 6.12 RBC 3.99 L Hgb 11.6 L Hct 33.4 L MCV 83.7 MCH 29.1 MCHC 34.7 RDW Coeff of Catherine 13.3 Plt Count 188 Immature Gran % (Auto) 0.7 Neut % (Auto) 69.2 Lymph % (Auto) 20.3 Snyder % (Auto) 9.5 Eos % (Auto) 0.0 Baso % (Auto) 0.3 Neut # (Auto) 4.2 Lymph # (Auto) 1.2 Snyder # (Auto) 0.6 Eos # (Auto) 0.0 Baso # (Auto) 0.0 Immature Gran # (Auto) 0.0 Puncture Site Base Excess O2 Saturation ABG pH ABG pCO2 ABG pO2 ABG HCO3 ABG Total CO2 Jaycob Test Hemoglobin Oxyhemoglobin Carboxyhemoglobin Total Hemoglobin FiO2 % Sodium 133.8 L Potassium 3.85 Chloride 102.8 Carbon Dioxide 23.0 Anion Gap 11.85 BUN 14.4 Creatinine 0.92 Estimated GFR (MDRD) 58.00 BUN/Creatinine Ratio 15.65 Glucose 109.3 H Lactic Acid 1.84 Calcium 8.73 Total Bilirubin 0.34 AST 63.2 H ALT 39.4 H Alkaline Phosphatase 60.1 Troponin I < 0.012 NT-Pro-B Natriuret Pep 227.000 Total Protein 6.62 Albumin 3.61 Globulin 3.01 Albumin/Globulin Ratio 1.19 07/23/21 11:55 WBC RBC Hgb Hct MCV MCH MCHC RDW Coeff of Catherine Plt Count Immature Gran % (Auto) Neut % (Auto) Lymph % (Auto) Snyder % (Auto) Eos % (Auto) Baso % (Auto) Neut # (Auto) Lymph # (Auto) Snyder # (Auto) Eos # (Auto) Baso # (Auto) Immature Gran # (Auto) Puncture Site Rrad Base Excess -0.4 O2 Saturation 95.8 ABG pH 7.64 H* ABG pCO2 19.0 L ABG pO2 63.0 L ABG HCO3 20.5 L ABG Total CO2 21.1 Jaycob Test Pos Hemoglobin 0.6 Oxyhemoglobin 94.9 L Carboxyhemoglobin 1.3 Total Hemoglobin 11.9 FiO2 % 21.0 Sodium Potassium Chloride Carbon Dioxide Anion Gap BUN Creatinine Estimated GFR (MDRD) BUN/Creatinine Ratio Glucose Lactic Acid Calcium Total Bilirubin AST ALT Alkaline Phosphatase Troponin I NT-Pro-B Natriuret Pep Total Protein Albumin Globulin Albumin/Globulin Ratio Orders Category Date Time Status ABG DRAW REQUEST Stat CARDIO 07/23/21 11:33 Completed EKG-(ED ONLY) Stat CARDIO 07/23/21 11:32 Completed METERED DOSE INHALATION Routine CARDIO 07/23/21 11:38 Active ED IV/MEDIPORT/POWERPORT .ONCE EMERGENCY 07/23/21 11:38 Active ABG COOX Stat LAB 07/23/21 11:55 Completed CBC W/ AUTO DIFF Stat LAB 07/23/21 11:52 Completed COMPREHENSIVE METABOLIC PANEL Stat LAB 07/23/21 11:52 Completed LACTIC ACID Stat LAB 07/23/21 11:52 Completed NT-PROBNP Stat LAB 07/23/21 11:52 Completed TROPONIN I Stat LAB 07/23/21 11:52 Completed 0.9 % Sodium Chloride [Saline Flush] MEDS 07/23/21 11:38 Active 1 syr IVF PRN PRN Albuterol Inhaler(with Spacer) [Ventolin Hfa (Per Puff- MEDS 07/23/21 11:32 Discontinued with Spacer)] 2 puff IH ONCE ONE Ipratropium Inhaler(Spacer) [Atrovent Hfa Inhaler (Per MEDS 07/23/21 12:00 Discontinued Puff-with Spacer)] 2 puff IH ONCE ONE Methylprednisolone Sod Succ/Pf [Solu-Medrol 125 mg] MEDS 07/23/21 11:32 Discontinued 125 mg IVP ONCE ONE Sodium Chloride 0.9% [Sodium Chloride] 500 ml MEDS 07/23/21 11:[address] CHEST W/O CONTRAST Stat RADS 07/23/21 11:32 Completed Medications Generic Name Dose Route Start Last Admin Trade Name Freq PRN Reason Stop Dose Admin Acetaminophen 650 mg 07/23/21 14:36 Acetaminophen 325 Mg Tablet PO Q8H PRN Mild/Moderate Pain Albuterol Sulfate 2 puff 07/23/21 20:00 07/26/21 10:08 Albuterol Sulfate (Ventolin Hfa) 18 Gm 1 Puff With Spacer IH 2 puff RTQID LIZANDRO Administration Ascorbic Acid 500 mg 07/24/21 09:00 07/26/21 09:06 Ascorbic Acid 500 Mg Tablet PO 500 mg DAILY LIZANDRO Administration Aspirin 325 mg 07/24/21 09:00 07/24/21 09:54 Aspirin 325 Mg Tablet. PO 325 mg EVERY OTHER DAY LIZANDRO Administration Cholecalciferol 5,000 unit 07/24/21 10:30 07/26/21 09:05 Cholecalciferol (Vitamin D3) 1,000 Unit (25 Mcg) Tablet PO 5,000 unit DAILY LIZANDRO Administration Dexamethasone Sodium Phosphate 6 mg 07/25/21 10:00 07/26/21 09:07 Dexamethasone Sod Phos 10 Mg/Ml Inj IVP 6 mg DAILY LIZANDRO Administration Famotidine 40 mg 07/24/21 10:26 07/26/21 05:30 Famotidine 20 Mg Tablet PO 40 mg BIDAC LIZANDRO Administration Fish Oil 2,000 mg 07/24/21 09:00 07/26/21 09:05 [place]-3/Dha/Epa/Fish Oil 1,000 Mg Capsule PO 2,000 mg BID LIZANDRO Administration Folic Acid 1 mg 07/24/21 09:00 07/26/21 09:06 Folic Acid 1 Mg Tablet PO 1 mg DAILY LIZANDRO Administration Sodium Chloride 1,000 mls @ 75 mls/hr 07/23/21 15:00 07/25/21 22:11 Sodium Chloride IV 75 mls/hr .[id number] LIZANDRO Administration CEFTRIAXONE/D5W 1 GM PREMIX 1 gm in 50 mls @ 75 mls/hr 07/23/21 15:00 07/26/21 09:04 Rocephin 1 Gm/50 Ml D5w IV 07/26/21 14:59 75 mls/hr DAILY LIZANDRO Administration Ipratropium [facility] 2 puff 07/23/21 20:00 07/26/21 10:08 Ipratropium [facility] 12.9 Gm Hfa Inhaler Per Puff With Spacer IH 2 puff RTQID LIZANDRO Administration Levothyroxine Sodium 25 mcg 07/23/21 15:00 07/26/21 05:30 Levothyroxine Sodium 25 Mcg Tablet PO 25 mcg 0630 LIZANDRO Administration Simvastatin 40 mg 07/23/21 21:00 07/25/21 20:51 Simvastatin 40 Mg Tablet PO 40 mg BEDTIME LIZANDRO Administration Sodium Chloride 1 syr 07/23/21 11:38 0.9% Sodium Chloride 10 Ml Disp.Syrin IVF PRN PRN To flush IV Zinc Sulfate 220 mg 07/26/21 09:00 07/26/21 09:05 Zinc Sulfate 220 Mg Capsule PO 220 mg DAILY LIZANDRO Administration Discontinued Medications Generic Name Dose Route Start Last Admin Trade Name Freq PRN Reason Stop Dose Admin Albuterol Sulfate 2 puff 07/23/21 11:32 07/23/21 12:29 Albuterol Sulfate (Ventolin Hfa) 18 Gm 1 Puff With Spacer IH 07/23/21 11:33 2 puff ONCE ONE Administration Azithromycin 500 mg 07/23/21 15:00 07/25/21 09:02 Azithromycin 250 Mg Tablet PO 07/25/21 10:00 500 mg DAILY LIZANDRO Administration Cholecalciferol 2,000 unit 07/25/21 10:30 07/25/21 10:36 Cholecalciferol (Vitamin D3) 1,000 Unit (25 Mcg) Tablet PO Not Given DAILY [facility] Dexamethasone Sodium Phosphate 6 mg 07/24/21 10:30 07/25/21 09:02 Dexamethasone Sod Phos 10 Mg/Ml Inj IM 6 mg DAILY LIZANDRO Administration Sodium Chloride 500 mls @ 500 mls/hr 07/23/21 11:38 07/23/21 12:40 Sodium Chloride IV 07/23/21 12:37 500 mls/hr BOLUS STA Administration Ipratropium [facility] 2 puff 07/23/21 12:00 07/23/21 12:29 Ipratropium [facility] 12.9 Gm Hfa Inhaler Per Puff With Spacer IH 07/23/21 12:01 2 puff ONCE ONE Administration Methylprednisolone Sodium Succinate 125 mg 07/23/21 11:32 07/23/21 12:40 Methylprednisolone Sod Succ/Pf 125 Mg/2 Ml Vial IVP 07/23/21 11:33 125 mg ONCE ONE Administration Methylprednisolone Sodium Succinate 125 mg 07/23/21 21:00 07/24/21 05:48 Methylprednisolone Sod Succ/Pf 125 Mg/2 Ml Vial IVP 125 mg Q8HR LIZANDRO Administration Non-Formulary Medication 325 mg 07/25/21 09:00 Aspirin,Buffd-Calcium Carb-Mag PO EVERY OTHER DAY [facility] Zinc Sulfate 220 mg 07/25/21 10:03 07/25/21 10:34 Zinc Sulfate 220 Mg Capsule PO 07/25/21 10:04 220 mg ONCE ONE Administration Vital Signs: Temp Pulse Resp BP Pulse Ox 07/23/21 12:30 99 07/23/21 11:07 97.8 F 83 16 119/69 96 Discharge Plan Discharge Patient Disposition: ADMITTED INPATIENT Discharge Problem: Pneumonia due to 2019-nCoV, Weakness generalized ED Provider: GRANT TROTTER Condition: Stable Physician Progress Note: []
[2021-07-25] MEDS ORDERED: ZINC-220 PO ONE (10:03)
[2021-07-25] MEDS: DECADRON IVP SCH (10:25)
[2021-07-25] MEDS ORDERED: VITAMIN D PO SCH (10:30)
[2021-07-25] MEDS ORDERED: VEKLURY 100 MG in SODIUM CHLORIDE 250 ML IV SCH (12:00)
[2021-07-25] MEDS: ZOCOR PO SCH (20:51)
[2021-07-26] MEDS: PEPCID PO SCH ×2 (05:30→16:38)
[2021-07-26] MEDS: SYNTHROID PO SCH (05:30)
[2021-07-26 05:36] LABS: ABG O2 HGB 89.6 % (95-100); ABG PH 7.48 (7.35-7.45); BEecf -1.9 (-2.0-3.0); COHb 1.8 (0.5-1.5); HCO3 21.6 (21-28); MetHb 0.7 (0-1.5); TCO2 22.5 (19-24); sO2 89.6 % (94-98); tHb 13.6 g/dl (11.7-17.4)
[2021-07-26] MEDS: ATROVENT HFA INHALER (PER PUFF-WITH SPACER) IH SCH ×4 (05:47→20:20)
[2021-07-26] MEDS: VENTOLIN HFA (PER PUFF-WITH SPACER) IH SCH ×4 (05:47→20:20)
[2021-07-26] MEDS: ROCEPHIN 1 GM/50 ML D5W 1 GM/50 ML BAG IV SCH (09:04)
[2021-07-26] MEDS: ZINC-220 PO SCH (09:05)
[2021-07-26] MEDS: VITAMIN D PO SCH (09:05)
[2021-07-26] MEDS: OMEGA-3 FISH OIL PO SCH ×2 (09:05→20:51)
[2021-07-26] MEDS: FOLIC ACID PO SCH (09:06)
[2021-07-26] MEDS: VITAMIN C PO SCH (09:06)
[2021-07-26] MEDS: DECADRON IVP SCH (09:07)
--- NOTE | 2021-07-26 11:24 | PCM.PROG ---
Date Seen by Provider: 07/25/21 Time Seen by Provider: 10:15 Subjective: Hospital inpatient Visit. C/o Dyspnea with exertion and at rest with slow recovery Admitted to hospital for onging treatment of COVID related Illness. Objective: Vitals: T=97.8 F, P=80, R=22, NV=958/81, SPO2=98 HEENT: Head The head is normocephalic and atraumatic without tenderness, visible or palpable masses, depressions, or scarring. Hair is of normal texture and evenly distributed. Eyes Visual acuity is intact. Conjunctivae are clear without exudates or hemorrhage. Sclera is non-icteric. EOM are intact, PERRLA. Fundi appear normal including optic discs and vessels. No signs of nystagmus. Ears The pinna, tragus, and ear canal are non-tender and without swelling. The ear canal is clear without discharge. The tympanic membrane is normal in appearance with a good cone of light. Hearing is intact with good acuity to whispered voice. Nose Nasal mucosa is pink and moist. The nasal septum is midline. Nares are patent bilaterally. Throat/Mouth Oral mucosa is pink and moist with good dentition. Tongue normal in appearance without lesions and with good symmetrical movement. No buccal nodules or lesions are noted. The pharynx is normal in appearance without tonsillar swelling or exudates. No adenopathy is noted. Neck: Soft an supple, no palpable node Lungs: CTA-AF CVS: HRRR w/o Murmur Abdomen: Soft nontender; BS normal Extremities: Move equally X 4 w/o hemiparesis Neurological: CN II-XII intact. NO motor or cerebellar deficit Skin: Nomal color tone adn texture Lab/Tests/Diagnostic Imaging: [] (1) Pneumonia due to 2019-nCoV: Status: Acute Code(s): U07.1 - COVID-19; J12.82 - Pneumonia due to coronavirus disease 2019 SNOMED Code(s): 335197196904360748 (2) Weakness generalized: Status: Acute Code(s): R53.1 - Weakness SNOMED Code(s): 20532628 (3) COVID-19: Status: Acute Code(s): U07.1 - COVID-19 SNOMED Code(s): 300646332 Plan: Continue present therapy, recheck lab Discharge planning
[2021-07-26] MEDS: SODIUM CHLORIDE 1,000 ML IV SCH (12:26)
[2021-07-26] MEDS: ASPIRIN EC PO SCH (12:26)
[2021-07-26] MEDS ORDERED: MILK OF MAGNESIA PO PRN (16:17)
[2021-07-26] MEDS: ZOCOR PO SCH (20:51)
--- NOTE | 2021-07-26 22:03 | PCM.PROG ---
Date Seen by Provider: 07/26/21 Time Seen by Provider: 10:00 Subjective: Wayne a little poorly initially this morning, but better now. Overall is improving. Objective: Vitals: T=97.7 F, P=67, R=22, EU=890/85, SPO2=95 HEENT: [WNL] Neck: [Supple] Lungs: Diminished, mild rhonchi, no wheezes. CVS: [RRR without m.] Abdomen: [soft, no pain] Extremities: [intact without edema] Neurological: [grossly intact] Skin: [wnl] Lab/Tests/Diagnostic Imaging: [Nothing new today] (1) Pneumonia due to 2019-nCoV: Status: Acute Code(s): U07.1 - COVID-19; J12.82 - Pneumonia due to coronavirus disease 2019 SNOMED Code(s): 457770065625364539 Assessment: No respiratory distress, oxygenating well on 3 liters per NC. No need for further antibiotics, no secondary infection. (2) Weakness generalized: Status: Acute Code(s): R53.1 - Weakness SNOMED Code(s): 03666461 Assessment: Likely just related to having COVID, nothing acute. (3) COVID-19: Status: Acute Code(s): U07.1 - COVID-19 SNOMED Code(s): 652349251 Assessment: She declined remdesivir. Plan: Continue current management. Routine labs in the morning.
[2021-07-27] MEDS: SODIUM CHLORIDE 1,000 ML IV SCH (01:36)
[2021-07-27] MEDS: ATROVENT HFA INHALER (PER PUFF-WITH SPACER) IH SCH ×4 (04:50→19:55)
[2021-07-27] MEDS: VENTOLIN HFA (PER PUFF-WITH SPACER) IH SCH ×4 (04:50→19:55)
[2021-07-27] MEDS: SYNTHROID PO SCH (05:37)
[2021-07-27] MEDS: PEPCID PO SCH ×2 (05:37→16:21)
[2021-07-27 07:22] LABS: BASOPHILS # (AUTO) 0.1 K/uL (0-0.2); BASOPHILS % (AUTO) 0.4 % (0.0-3.0); HEMOGLOBIN 10.6 g/dl (12.0-16.0); IMMATURE GRANULOCYTE # (AUTO) 0.7 (0.0-1.0); IMMATURE GRANULOCYTE % (AUTO) 5.4 % (0.0-5.0); MEAN CORPUSCULAR HEMOGLOBIN 28.6 pg (27.0-31.0); MEAN CORPUSCULAR HGB CONC 34.2 (31.8-35.4); MEAN CORPUSCULAR VOLUME 83.8 fl (81.0-99.0); MONOCYTES % (AUTO) 7.7 (0-10); NEUTROPHILS # (AUTO) 9.3 K/ul (2.0-6.9); NEUTROPHILS % (AUTO) 71.5 % (42.2-75.2); PLATELET COUNT 259 10^3/uL (140-440); RDW COEFFICIENT OF VARIATION 13.2 % (11.6-14.8); WHITE BLOOD COUNT 13.04 K/ul (4.6-10.2)
[2021-07-27 07:40] LABS: ALANINE AMINOTRANSFERASE 50.6 U/L (0-35); ALBUMIN 3.06 g/dL (3.5-5.0); ALKALINE PHOSPHATASE 63.5 U/L (53-141); ASPARTATE AMINO TRANSFERASE 47.6 U/L (14-36); BILIRUBIN,TOTAL 0.43 mg/dL (0.2-1.3); BLOOD UREA NITROGEN 14.8 mg/dL (7-17); CALCIUM 8.5 mg/dL (8.4-10.2); CARBON DIOXIDE 24.5 mmol/L (22-30.0); CHLORIDE 108.6 mmol/L (98-107); CREATININE 0.82 mg/dL (0.60-1.30); GLUCOSE 93.6 mg/dL (74-106); POTASSIUM 3.47 mmol/L (3.5-5.1); SODIUM 136.8 mmol/L (134.5-145); TOTAL PROTEIN 5.8 g/dL (6.3-8.2)
[2021-07-27 08:41] LABS: ABG PH 7.55 (7.35-7.45); BEecf 1.2 (-2.0-3.0); COHb 1.2 (0.5-1.5); HCO3 23.6 (21-28); MetHb 1.2 (0-1.5); TCO2 24.4 (19-24); sO2 94.6 % (94-98)
[2021-07-27 08:42] LABS: ABG O2 HGB 93.4 % (95-100); tHb 11.2 g/dl (11.7-17.4)
[2021-07-27] MEDS: VITAMIN D PO SCH (08:55)
[2021-07-27] MEDS: OMEGA-3 FISH OIL PO SCH ×2 (08:55→21:08)
[2021-07-27] MEDS: ZINC-220 PO SCH (08:55)
[2021-07-27] MEDS: FOLIC ACID PO SCH (08:56)
[2021-07-27] MEDS: VITAMIN C PO SCH (08:56)
[2021-07-27] MEDS: DECADRON IVP SCH (08:56)
[2021-07-27] MEDS ORDERED: CITRATE OF MAGNESIA PO ONE (13:52)
[2021-07-27] MEDS: ZOCOR PO SCH (21:08)
[2021-07-28] MEDS: SODIUM CHLORIDE 1,000 ML IV SCH ×2 (01:16→14:56)
[2021-07-28 04:52] LABS: ABG PH 7.49 (7.35-7.45); BEecf 1.8 (-2.0-3.0); HCO3 25.1 (21-28)
[2021-07-28 04:53] LABS: COHb 1.3 (0.5-1.5); MetHb 1.1 (0-1.5); TCO2 26.1 (19-24); sO2 93.3 % (94-98); tHb 19.7 g/dl (11.7-17.4)
[2021-07-28 04:54] LABS: ABG O2 HGB 92.2 % (95-100)
[2021-07-28] MEDS: VENTOLIN HFA (PER PUFF-WITH SPACER) IH SCH ×4 (05:47→19:05)
[2021-07-28] MEDS: ATROVENT HFA INHALER (PER PUFF-WITH SPACER) IH SCH ×4 (05:47→19:05)
[2021-07-28] MEDS: PEPCID PO SCH ×2 (06:09→16:27)
[2021-07-28] MEDS: SYNTHROID PO SCH (06:09)
[2021-07-28] MEDS: ZINC-220 PO SCH (08:20)
[2021-07-28] MEDS: OMEGA-3 FISH OIL PO SCH ×2 (08:20→20:07)
[2021-07-28] MEDS: VITAMIN D PO SCH (08:20)
[2021-07-28] MEDS: DECADRON IVP SCH (08:21)
[2021-07-28] MEDS: FOLIC ACID PO SCH (08:21)
[2021-07-28] MEDS: VITAMIN C PO SCH (08:21)
[2021-07-28] MEDS: ASPIRIN EC PO SCH (08:31)
--- NOTE | 2021-07-28 15:49 | PCM.PROG ---
Date Seen by Provider: 07/28/21 Time Seen by Provider: 10:00 Subjective: Doing OK overall, no sig. resp. symptoms. Objective: Vitals: T=98.7 F, P=75, R=20, XG=810/74, SPO2=93 HEENT: [WNL] Neck: [supple] Lungs: Few rhonchi, clear overall CVS: [RRR, no m] Abdomen: [soft, nl BS] Extremities: [intact] Neurological: [intact] Skin: [intact] Lab/Tests/Diagnostic Imaging: [No new labs of concern. ] (1) Pneumonia due to 2019-nCoV: Status: Acute Code(s): U07.1 - COVID-19; J12.82 - Pneumonia due to coronavirus disease 2019 SNOMED Code(s): 622862861741861085 Assessment: Doing OK, maintaining oxygen sats well on 3 L per NC. (2) Weakness generalized: Status: Acute Code(s): R53.1 - Weakness SNOMED Code(s): 86413114 Assessment: Overall feels a little better, weak from the C-19 infection (3) COVID-19: Status: Chronic Code(s): U07.1 - COVID-19 SNOMED Code(s): 776662407
--- NOTE | 2021-07-28 16:02 | PCM.PROG ---
Date Seen by Provider: 07/27/21 Time Seen by Provider: 10:30 Subjective: Overall feeling better, breathing easier. Still coughing Objective: Vitals: T=98.7 F, P=75, R=20, UI=870/74, SPO2=93 HEENT: Clear, MICHAEL-A, EOMI Neck: Sooft supple . no masses or nodes Lungs: CTA CVS: HRRR Abdomen soft non tender Extremities: WNL Neurological: WNL Skin: W/D Lab/Tests/Diagnostic Imaging: [] (1) Pneumonia due to 2019-nCoV: Status: Acute Code(s): U07.1 - COVID-19; J12.82 - Pneumonia due to coronavirus disease 2019 SNOMED Code(s): 850183941597385344 (2) Weakness generalized: Status: Acute Code(s): R53.1 - Weakness SNOMED Code(s): 54008901 (3) COVID-19: Status: Chronic Code(s): U07.1 - COVID-19 SNOMED Code(s): 282693647 Plan: Review Lab CPT
[2021-07-28] MEDS: ZOCOR PO SCH (20:08)
[2021-07-29] MEDS: SODIUM CHLORIDE 1,000 ML IV SCH ×2 (03:06→16:12)
[2021-07-29] MEDS: VENTOLIN HFA (PER PUFF-WITH SPACER) IH SCH ×4 (04:45→20:05)
[2021-07-29] MEDS: ATROVENT HFA INHALER (PER PUFF-WITH SPACER) IH SCH ×4 (04:45→20:05)
[2021-07-29 04:46] LABS: ABG O2 HGB 91.6 % (95-100); ABG PH 7.43 (7.35-7.45); BEecf -1.7 (-2.0-3.0); HCO3 22.6 (21-28); MetHb 0.8 (0-1.5); TCO2 23.6 (19-24); sO2 93.8 % (94-98); tHb 16.1 g/dl (11.7-17.4)
[2021-07-29 05:27] LABS: HEMOGLOBIN 10.1 g/dl (12.0-16.0); MEAN CORPUSCULAR HEMOGLOBIN 29.1 pg (27.0-31.0); MEAN CORPUSCULAR HGB CONC 34.8 (31.8-35.4); MEAN CORPUSCULAR VOLUME 83.6 fl (81.0-99.0); PLATELET COUNT 291 10^3/uL (140-440); RDW COEFFICIENT OF VARIATION 13.5 % (11.6-14.8); RED BLOOD COUNT 3.47 10^6/ul (4.20-5.40); WHITE BLOOD COUNT 9.53 K/ul (4.6-10.2)
[2021-07-29 05:43] LABS: ALANINE AMINOTRANSFERASE 40.7 U/L (0-35); ALBUMIN 2.88 g/dL (3.5-5.0); ALKALINE PHOSPHATASE 66.4 U/L (53-141); ASPARTATE AMINO TRANSFERASE 30.4 U/L (14-36); BILIRUBIN,TOTAL 0.53 mg/dL (0.2-1.3); BLOOD UREA NITROGEN 15.1 mg/dL (7-17); CALCIUM 8.27 mg/dL (8.4-10.2); CARBON DIOXIDE 20.6 mmol/L (22-30.0); CHLORIDE 108.7 mmol/L (98-107); CREATININE 0.79 mg/dL (0.60-1.30); GLUCOSE 136.3 mg/dL (74-106); POTASSIUM 3.59 mmol/L (3.5-5.1); SODIUM 136.8 mmol/L (134.5-145); TOTAL PROTEIN 5.52 g/dL (6.3-8.2)
[2021-07-29] MEDS: SYNTHROID PO SCH (06:02)
[2021-07-29] MEDS: PEPCID PO SCH ×2 (06:02→16:13)
[2021-07-29 06:15] LABS: ANISOCYTOSIS NOT PRESENT (NOT PRESENT)
[2021-07-29] MEDS: DECADRON IVP SCH (08:11)
[2021-07-29 08:17] LABS: C-REACTIVE PROTEIN 9 mg/L (0-10)
[2021-07-29] MEDS: FOLIC ACID PO SCH (09:04)
[2021-07-29] MEDS: VITAMIN D PO SCH (09:04)
[2021-07-29] MEDS: VITAMIN C PO SCH (09:04)
[2021-07-29] MEDS: OMEGA-3 FISH OIL PO SCH ×2 (09:04→20:19)
[2021-07-29] MEDS: ZINC-220 PO SCH (09:04)
[2021-07-29] MEDS: ZOCOR PO SCH (20:19)
[2021-07-30] MEDS: ATROVENT HFA INHALER (PER PUFF-WITH SPACER) IH SCH ×4 (04:40→20:40)
[2021-07-30] MEDS: VENTOLIN HFA (PER PUFF-WITH SPACER) IH SCH ×4 (04:40→20:40)
[2021-07-30] MEDS: PEPCID PO SCH ×2 (05:55→17:29)
[2021-07-30] MEDS: SYNTHROID PO SCH (05:55)
[2021-07-30 05:57] LABS: BASOPHILS % (AUTO) 0.2 % (0.0-3.0); EOSINOPHILS % (AUTO) 0.2 % (0.0-7.0); HEMATOCRIT 29.1 % (37.0-47.0); HEMOGLOBIN 9.8 g/dl (12.0-16.0); IMMATURE GRANULOCYTE # (AUTO) 0.4 (0.0-1.0); IMMATURE GRANULOCYTE % (AUTO) 3.9 % (0.0-5.0); LYMPHOCYTES # (AUTO) 1.7 K/uL (0.60-3.4); LYMPHOCYTES % (AUTO) 15.9 (10.0-50.0); MEAN CORPUSCULAR HEMOGLOBIN 28.3 pg (27.0-31.0); MEAN CORPUSCULAR HGB CONC 33.7 (31.8-35.4); MEAN CORPUSCULAR VOLUME 84.1 fl (81.0-99.0); MONOCYTES # (AUTO) 0.8 K/uL (0.4-2.0); MONOCYTES % (AUTO) 7.6 (0-10); NEUTROPHILS # (AUTO) 7.5 K/ul (2.0-6.9); NEUTROPHILS % (AUTO) 72.2 % (42.2-75.2); PLATELET COUNT 301 10^3/uL (140-440); RDW COEFFICIENT OF VARIATION 13.4 % (11.6-14.8); RED BLOOD COUNT 3.46 10^6/ul (4.20-5.40); WHITE BLOOD COUNT 10.39 K/ul (4.6-10.2)
[2021-07-30 06:09] LABS: ALANINE AMINOTRANSFERASE 44.2 U/L (0-35); ALBUMIN 2.88 g/dL (3.5-5.0); ASPARTATE AMINO TRANSFERASE 40.3 U/L (14-36); BILIRUBIN,TOTAL 0.45 mg/dL (0.2-1.3); BLOOD UREA NITROGEN 16.8 mg/dL (7-17); CALCIUM 8.58 mg/dL (8.4-10.2); CARBON DIOXIDE 23.9 mmol/L (22-30.0); CHLORIDE 107.6 mmol/L (98-107); CREATININE 0.8 mg/dL (0.60-1.30); POTASSIUM 3.58 mmol/L (3.5-5.1); SODIUM 136.6 mmol/L (134.5-145); TOTAL PROTEIN 5.61 g/dL (6.3-8.2)
[2021-07-30 08:09] LABS: C-REACTIVE PROTEIN 19 mg/L (0-10)
[2021-07-30] MEDS: DECADRON IVP SCH (09:04)
[2021-07-30] MEDS: SODIUM CHLORIDE 1,000 ML IV SCH ×2 (09:05→17:30)
[2021-07-30] MEDS: VITAMIN D PO SCH (09:29)
[2021-07-30] MEDS: VITAMIN C PO SCH (09:29)
[2021-07-30] MEDS: ZINC-220 PO SCH (09:29)
[2021-07-30] MEDS: FOLIC ACID PO SCH (09:29)
[2021-07-30] MEDS: OMEGA-3 FISH OIL PO SCH ×2 (09:29→20:24)
[2021-07-30] MEDS: ASPIRIN EC PO SCH (09:33)
[2021-07-30] MEDS: ZOCOR PO SCH (20:25)
[2021-07-31] MEDS: ATROVENT HFA INHALER (PER PUFF-WITH SPACER) IH SCH ×3 (04:50→14:29)
[2021-07-31] MEDS: VENTOLIN HFA (PER PUFF-WITH SPACER) IH SCH ×3 (04:50→14:29)
[2021-07-31 05:32] LABS: BASOPHILS % (AUTO) 0.2 % (0.0-3.0); EOSINOPHILS % (AUTO) 0.1 % (0.0-7.0); HEMATOCRIT 30.1 % (37.0-47.0); HEMOGLOBIN 10.3 g/dl (12.0-16.0); IMMATURE GRANULOCYTE # (AUTO) 0.4 (0.0-1.0); IMMATURE GRANULOCYTE % (AUTO) 3.8 % (0.0-5.0); LYMPHOCYTES # (AUTO) 1.7 K/uL (0.60-3.4); LYMPHOCYTES % (AUTO) 15.6 (10.0-50.0); MEAN CORPUSCULAR HEMOGLOBIN 28.8 pg (27.0-31.0); MEAN CORPUSCULAR HGB CONC 34.2 (31.8-35.4); MEAN CORPUSCULAR VOLUME 84.1 fl (81.0-99.0); MONOCYTES # (AUTO) 0.7 K/uL (0.4-2.0); MONOCYTES % (AUTO) 6.4 (0-10); NEUTROPHILS # (AUTO) 8.2 K/ul (2.0-6.9); NEUTROPHILS % (AUTO) 73.9 % (42.2-75.2); PLATELET COUNT 323 10^3/uL (140-440); RDW COEFFICIENT OF VARIATION 13.5 % (11.6-14.8); RED BLOOD COUNT 3.58 10^6/ul (4.20-5.40); WHITE BLOOD COUNT 11.08 K/ul (4.6-10.2)
[2021-07-31 05:43] LABS: ALANINE AMINOTRANSFERASE 54.8 U/L (0-35); ALBUMIN 3.17 g/dL (3.5-5.0); ALKALINE PHOSPHATASE 64.9 U/L (53-141); ASPARTATE AMINO TRANSFERASE 43.7 U/L (14-36); BILIRUBIN,TOTAL 0.44 mg/dL (0.2-1.3); BLOOD UREA NITROGEN 20.2 mg/dL (7-17); CALCIUM 8.97 mg/dL (8.4-10.2); CARBON DIOXIDE 24.2 mmol/L (22-30.0); CHLORIDE 105.6 mmol/L (98-107); CREATININE 0.9 mg/dL (0.60-1.30); GLUCOSE 119.7 mg/dL (74-106); POTASSIUM 3.77 mmol/L (3.5-5.1); SODIUM 136.3 mmol/L (134.5-145); TOTAL PROTEIN 5.92 g/dL (6.3-8.2)
[2021-07-31] MEDS: PEPCID PO SCH (05:46)
[2021-07-31] MEDS: SYNTHROID PO SCH (05:51)
--- NOTE | 2021-07-31 10:00 | PN ---
DATE OF VISIT: 07/30/2021 SUBJECTIVE: Ms. Brito is admitted with COVID pneumonia. Overall is feeling better. She feels that her breathing is easier. Her cough is improved. OBJECTIVE: VITALS: Temperature 98.8, pulse 80, respiratory rate 25, blood pressures 125/90. REVIEW OF SYSTEMS: Denies headaches, visual changes, tinnitus or chest pain. Positive for shortness of breath with exertion. No hemoptysis, abdominal pain, blood in the stool, urinary symptoms or seizures. PHYSICAL EXAMINATION: HEENT: Pupils are round. NECK: Supple. CHEST: Clear. Rhonchus sounds. CARDIOVASCULAR: Regular rate and rhythm. ABDOMEN: Soft, nontender. EXTREMITIES: Distal extremities without cyanosis or edema. LABS: CBC; wbc 10,000, hgb 9.8, hct 29.1. Chemistry; reviewed. IMPRESSION: 1. COVID pneumonia PLAN: 1. Continue present line of care. 2. Labs in AM. MTDD
[2021-07-31] MEDS: VITAMIN D PO SCH (10:02)
[2021-07-31] MEDS: OMEGA-3 FISH OIL PO SCH (10:03)
[2021-07-31] MEDS: VITAMIN C PO SCH (10:04)
[2021-07-31] MEDS: ZINC-220 PO SCH (10:05)
[2021-07-31] MEDS: FOLIC ACID PO SCH (10:05)
--- NOTE | 2021-07-31 11:02 | PCM.PROG ---
Date Seen by Provider: 07/31/21 Time Seen by Provider: 10:00 Subjective: Feeling better slowly. Less dyspnea. Out of quarantine. Objective: Vitals: T=98.8 F, P=60, R=18, PY=406/74, SPO2=97 HEENT: [WNL] Neck: [Supple] Lungs: Rhonchi, no wheezes. CVS: [RRR without m] Abdomen: [soft] Extremities: [intact without edema] Neurological: [intact] Skin: [intact] Lab/Tests/Diagnostic Imaging: [No acute problems.] (1) Pneumonia due to 2019-nCoV: Status: Acute Code(s): U07.1 - COVID-19; J12.82 - Pneumonia due to coronavirus disease 2019 SNOMED Code(s): 197678008318490778 Assessment: Gradual improvement. Still on 3 liters per NC. As soon as can go to [facility], can be d/c. (2) Weakness generalized: Status: Acute Code(s): R53.1 - Weakness SNOMED Code(s): 65123170 Assessment: Improved - COVID related. Plan: Continue current management. 3 step RT study.
[2021-07-31 12:16] LABS: C-REACTIVE PROTEIN 7 mg/L (0-10)
--- NOTE | 2021-07-31 12:17 | PCM.PROG ---
Date Seen by Provider: 07/29/21 Time Seen by Provider: 15:45 Subjective: PATIENT sitting up in bed, on oxygen w/nasal canula. States she continues to improve, remains dyspneic at rest. Objective: Vitals: T=98.8 F, P=60, R=18, RI=639/74, SPO2=97 HEENT: CLEAR Neck: SUPPLE Lungs: CLEAR CVS: HRRR W/O MUMUR Abdomen: SOFT W/O TENDERNESS Extremities: NEG Edema Neurological: AAOx3, CN II- XII intact; no focal deficit Skin: wnl Lab/Tests/Diagnostic Imaging: see chart (1) Pneumonia due to 2019-nCoV: Status: Acute Code(s): U07.1 - COVID-19; J12.82 - Pneumonia due to coronavirus disease 2019 SNOMED Code(s): [id number] (2) Weakness generalized: Status: Acute Code(s): R53.1 - Weakness SNOMED Code(s): 57401202 Plan: Has completed IV therapy and completed quarantine DAYS,Can be moved to [facility]
[2021-07-31 13:55] VITALS: BP 116/68; TEMP 98.2
--- NOTE | 2021-07-31 14:02 | PCM.DC ---
Final Diagnosis: COVID-19 pneumonia with hypoxemia (1) Pneumonia due to 2019-nCoV: Status: Acute Code(s): U07.1 - COVID-19; J12.82 - Pneumonia due to coronavirus disease 2018 SNOMED Code(s): 005705773296876115 (2) Weakness generalized: Status: Acute Code(s): R53.1 - Weakness SNOMED Code(s): 43353766 Reason for Hospitalization: Patient diagnosed at outpatient with C-19. Did well at first, jenn ordered, had some type of adverse reaction as an outpatient. A day or so later, became some hypoxic and required admit for oxygen. She was a candidate for remesivir, but refused. Prognosis/Condition at Discharge: Good. Medications at Discharge: Ambulatory Orders Medication Instructions Recorded folic acid 1 mg tablet 1 mg PO DAILY 04/22/15 ascorbate calcium (vitamin C) 500 500 mg PO DAILY 06/28/15 mg tablet aspirin,buffered (calcium 325 mg PO EVERY OTHER DAY #15 05/08/17 carbonate-magnesium) 325 mg tablet tab-cap Prevnar 13 (PF) 0.5 mL 0.5 ml IM ONCE #0.5 ml NS 06/16/20 intramuscular syringe (pneumoc 13-owen conj-dip cr(PF)) omeprazole 20 mg capsule,delayed 20 mg PO QDAC PRN #90 tab-cap 08/31/20 release icosapent ethyl 1 gram capsule 2 g PO BID #120 cap 06/07/21 (Vascepa) levothyroxine 25 mcg tablet 25 mcg PO QDAY #30 tab 06/07/21 simvastatin 40 mg tablet 40 mg PO .bedtime #90 tab 07/19/21 amoxicillin 875 mg-potassium 1 tab PO BID 10 Days #20 tab 07/20/21 clavulanate 125 mg tablet (Augmentin) Lab/Diagnostics: Unremarkable, refer to chart. Laboratory Tests 07/23/21 07/23/21 07/23/21 11:52 11:52 11:52 WBC 6.12 RBC 3.99 L Hgb 11.6 L Hct 33.4 L MCV 83.7 MCH 29.1 MCHC 34.7 RDW Coeff of Catherine 13.3 Plt Count 188 Immature Gran % (Auto) 0.7 Neut % (Auto) 69.2 Lymph % (Auto) 20.3 [place] % (Auto) 9.5 Eos % (Auto) 0.0 Baso % (Auto) 0.3 Neut # (Auto) 4.2 Lymph # (Auto) 1.2 [place] # (Auto) 0.6 Eos # (Auto) 0.0 Baso # (Auto) 0.0 Immature Gran # (Auto) 0.0 Neutrophils % (Manual) Lymphocytes % (Manual) Monocytes % (Manual) Reactive Lymphocytes Anisocytosis PT INR Puncture Site Base Excess O2 Saturation ABG pH ABG pCO2 ABG pO2 ABG HCO3 ABG Total CO2 Jay[place]ob Test Hemoglobin Oxyhemoglobin Carboxyhemoglobin Total Hemoglobin O2 Delivery Device Oxygen Liter Flow FiO2 % Sodium 133.8 L Potassium 3.85 Chloride 102.8 Carbon Dioxide 23.0 Anion Gap 11.85 BUN 14.4 Creatinine 0.92 Estimated GFR (MDRD) 58.00 BUN/Creatinine Ratio 15.65 Glucose 109.3 H Lactic Acid 1.84 Calcium 8.73 Ferritin Total Bilirubin 0.34 AST 63.2 H ALT 39.4 H Alkaline Phosphatase 60.1 Lactate Dehydrogenase Troponin I < 0.012 C-Reactive Prot, Quant NT-Pro-B Natriuret Pep 227.000 Total Protein 6.62 Albumin 3.61 Globulin 3.01 Albumin/Globulin Ratio 1.19 Urine Color Urine Clarity Urine pH Ur Specific [place] Urine Protein Urine Glucose (UA) Urine Ketones Urine Blood Urine Nitrite Urine Bilirubin Urine Urobilinogen Ur Leukocyte Esterase Influ A Molecular Assay Influ B Molecular Assay 07/23/21 07/23/21 07/23/21 11:55 14:32 22:00 WBC RBC Hgb Hct MCV MCH MCHC RDW Coeff of Catherine Plt Count Immature Gran % (Auto) Neut % (Auto) Lymph % (Auto) [place] % (Auto) Eos % (Auto) Baso % (Auto) Neut # (Auto) Lymph # (Auto) [place] # (Auto) Eos # (Auto) Baso # (Auto) Immature Gran # (Auto) Neutrophils % (Manual) Lymphocytes % (Manual) Monocytes % (Manual) Reactive Lymphocytes Anisocytosis PT INR Puncture Site Rrad Base Excess -0.4 O2 Saturation 95.8 ABG pH 7.64 H* ABG pCO2 19.0 L ABG pO2 63.0 L ABG HCO3 20.5 L ABG Total CO2 21.1 Jay[place] Test Pos Hemoglobin 0.6 Oxyhemoglobin 94.9 L Carboxyhemoglobin 1.3 Total Hemoglobin 11.9 O2 Delivery Device Oxygen Liter Flow FiO2 % 21.0 Sodium Potassium Chloride Carbon Dioxide Anion Gap BUN Creatinine Estimated GFR (MDRD) BUN/Creatinine Ratio Glucose Lactic Acid Calcium Ferritin Total Bilirubin AST ALT Alkaline Phosphatase Lactate Dehydrogenase Troponin I C-Reactive Prot, Quant NT-Pro-B Natriuret Pep Total Protein Albumin Globulin Albumin/Globulin Ratio Urine Color Yellow Urine Clarity Clear Urine pH 5.0 Ur Specific [place] 1.015 Urine Protein Negative Urine Glucose (UA) 2+ H Urine Ketones Trace H Urine Blood Negative Urine Nitrite Negative Urine Bilirubin Negative Urine Urobilinogen 0.2 Ur Leukocyte Esterase Negative Influ A Molecular Assay Negative by naat Influ B Molecular Assay Negative by naat 07/24/21 07/24/21 07/24/21 08:18 08:18 08:18 WBC RBC Hgb Hct MCV MCH MCHC RDW Coeff of Catherine Plt Count Immature Gran % (Auto) Neut % (Auto) Lymph % (Auto) [place] % (Auto) Eos % (Auto) Baso % (Auto) Neut # (Auto) Lymph # (Auto) [place] # (Auto) Eos # (Auto) Baso # (Auto) Immature Gran # (Auto) Neutrophils % (Manual) Lymphocytes % (Manual) Monocytes % (Manual) Reactive Lymphocytes Anisocytosis PT 9.6 INR 0.92 Puncture Site Base Excess O2 Saturation ABG pH ABG pCO2 ABG pO2 ABG HCO3 ABG Total CO2 Jay[place]ob Test Hemoglobin Oxyhemoglobin Carboxyhemoglobin Total Hemoglobin O2 Delivery Device Oxygen Liter Flow FiO2 % Sodium Potassium Chloride Carbon Dioxide Anion Gap BUN Creatinine Estimated GFR (MDRD) BUN/Creatinine Ratio Glucose Lactic Acid Calcium Ferritin 372.00 H Total Bilirubin AST ALT Alkaline Phosphatase Lactate Dehydrogenase Troponin I C-Reactive Prot, Quant 13 H NT-Pro-B Natriuret Pep Total Protein Albumin Globulin Albumin/Globulin Ratio Urine Color Urine Clarity Urine pH Ur Specific [place] Urine Protein Urine Glucose (UA) Urine Ketones Urine Blood Urine Nitrite Urine Bilirubin Urine Urobilinogen Ur Leukocyte Esterase Influ A Molecular Assay Influ B Molecular Assay 07/24/21 07/25/21 07/26/21 08:18 04:45 04:25 WBC RBC Hgb Hct MCV MCH MCHC RDW Coeff of Catherine Plt Count Immature Gran % (Auto) Neut % (Auto) Lymph % (Auto) [place] % (Auto) Eos % (Auto) Baso % (Auto) Neut # (Auto) Lymph # (Auto) [place] # (Auto) Eos # (Auto) Baso # (Auto) Immature Gran # (Auto) Neutrophils % (Manual) Lymphocytes % (Manual) Monocytes % (Manual) Reactive Lymphocytes Anisocytosis PT INR Puncture Site Rbrach Lb Base Excess -2.7 L -1.9 O2 Saturation 93.0 L 89.6 L ABG pH 7.49 H 7.48 H ABG pCO2 27.0 L 29.0 L ABG pO2 61.0 L 53.0 L* ABG HCO3 20.6 L 21.6 ABG Total CO2 21.4 22.5 Jay[place]ob Test Pos + Hemoglobin 0.7 0.7 Oxyhemoglobin 92.9 L 89.6 L Carboxyhemoglobin 2.0 H 1.8 H Total Hemoglobin 10.6 L 13.6 O2 Delivery Device Cannula Cannula Oxygen Liter Flow 3.00 3.00 FiO2 % 32.0 32.0 Sodium Potassium Chloride Carbon Dioxide Anion Gap BUN Creatinine Estimated GFR (MDRD) BUN/Creatinine Ratio Glucose Lactic Acid Calcium Ferritin Total Bilirubin AST ALT Alkaline Phosphatase Lactate Dehydrogenase 239 H Troponin I C-Reactive Prot, Quant NT-Pro-B Natriuret Pep Total Protein Albumin Globulin Albumin/Globulin Ratio Urine Color Urine Clarity Urine pH Ur Specific [place] Urine Protein Urine Glucose (UA) Urine Ketones Urine Blood Urine Nitrite Urine Bilirubin Urine Urobilinogen Ur Leukocyte Esterase Influ A Molecular Assay Influ B Molecular Assay 07/27/21 07/27/21 07/27/21 06:50 06:50 08:27 WBC 13.04 H RBC 3.70 L Hgb 10.6 L Hct 31.0 L MCV 83.8 MCH 28.6 MCHC 34.2 RDW Coeff of Catherine 13.2 Plt Count 259 Immature Gran % (Auto) 5.4 H Neut % (Auto) 71.5 Lymph % (Auto) 15.0 [place] % (Auto) 7.7 Eos % (Auto) 0.0 Baso % (Auto) 0.4 Neut # (Auto) 9.3 H Lymph # (Auto) 2.0 [place] # (Auto) 1.0 Eos # (Auto) 0.0 Baso # (Auto) 0.1 Immature Gran # (Auto) 0.7 Neutrophils % (Manual) Lymphocytes % (Manual) Monocytes % (Manual) Reactive Lymphocytes Anisocytosis PT INR Puncture Site Rbrach Base Excess 1.2 O2 Saturation 94.6 ABG pH 7.55 H* ABG pCO2 27.0 L ABG pO2 63.0 L ABG HCO3 23.6 ABG Total CO2 24.4 H [place]ob Test Hemoglobin 1.2 Oxyhemoglobin 93.4 L Carboxyhemoglobin 1.2 Total Hemoglobin 11.2 L O2 Delivery Device Nc Oxygen Liter Flow 3.00 FiO2 % Sodium 136.8 Potassium 3.47 L Chloride 108.6 H Carbon Dioxide 24.5 Anion Gap 7.17 BUN 14.8 Creatinine 0.82 Estimated GFR (MDRD) 67.00 BUN/Creatinine Ratio 18.04 Glucose 93.6 Lactic Acid Calcium 8.50 Ferritin Total Bilirubin 0.43 AST 47.6 H ALT 50.6 H Alkaline Phosphatase 63.5 Lactate Dehydrogenase Troponin I C-Reactive Prot, Quant NT-Pro-B Natriuret Pep Total Protein 5.80 L Albumin 3.06 L Globulin 2.74 Albumin/Globulin Ratio 1.11 Urine Color Urine Clarity Urine pH Ur Specific [place] Urine Protein Urine Glucose (UA) Urine Ketones Urine Blood Urine Nitrite Urine Bilirubin Urine Urobilinogen Ur Leukocyte Esterase Influ A Molecular Assay Influ B Molecular Assay 07/28/21 07/28/21 07/28/21 03:27 05:15 05:15 WBC RBC Hgb Hct MCV MCH MCHC RDW Coeff of Catherine Plt Count Immature Gran % (Auto) Neut % (Auto) Lymph % (Auto) [place] % (Auto) Eos % (Auto) Baso % (Auto) Neut # (Auto) Lymph # (Auto) [place] # (Auto) Eos # (Auto) Baso # (Auto) Immature Gran # (Auto) Neutrophils % (Manual) Lymphocytes % (Manual) Monocytes % (Manual) Reactive Lymphocytes Anisocytosis PT INR Puncture Site Lb Base Excess 1.8 O2 Saturation 93.3 L ABG pH 7.49 H ABG pCO2 33.0 L ABG pO2 62.0 L ABG HCO3 25.1 ABG Total CO2 26.1 H [place] Test + Hemoglobin 1.1 Oxyhemoglobin 92.2 L Carboxyhemoglobin 1.3 Total Hemoglobin 19.7 H O2 Delivery Device Oxygen Liter Flow FiO2 % 3.0 Sodium Potassium Chloride Carbon Dioxide Anion Gap BUN Creatinine Estimated GFR (MDRD) BUN/Creatinine Ratio Glucose Lactic Acid Calcium Ferritin 230.00 Total Bilirubin AST ALT Alkaline Phosphatase Lactate Dehydrogenase 300 H Troponin I C-Reactive Prot, Quant 9 NT-Pro-B Natriuret Pep Total Protein Albumin Globulin Albumin/Globulin Ratio Urine Color Urine Clarity Urine pH Ur Specific [place] Urine Protein Urine Glucose (UA) Urine Ketones Urine Blood Urine Nitrite Urine Bilirubin Urine Urobilinogen Ur Leukocyte Esterase Influ A Molecular Assay Influ B Molecular Assay 07/29/21 07/29/21 07/29/21 03:40 05:12 05:12 WBC 9.53 RBC 3.47 L Hgb 10.1 L Hct 29.0 L MCV 83.6 MCH 29.1 MCHC 34.8 RDW Coeff of Catherine 13.5 Plt Count 291 Immature Gran % (Auto) Neut % (Auto) Lymph % (Auto) [place] % (Auto) Eos % (Auto) Baso % (Auto) Neut # (Auto) Lymph # (Auto) [place] # (Auto) Eos # (Auto) Baso # (Auto) Immature Gran # (Auto) Neutrophils % (Manual) 81.0 H Lymphocytes % (Manual) 10.0 Monocytes % (Manual) 4.0 Reactive Lymphocytes 5.0 Anisocytosis Not present PT INR Puncture Site Lb Base Excess -1.7 O2 Saturation 93.8 L ABG pH 7.43 ABG pCO2 34.0 L ABG pO2 68.0 L ABG HCO3 22.6 ABG Total CO2 23.6 [place] Test + Hemoglobin 0.8 Oxyhemoglobin 91.6 L Carboxyhemoglobin 2.0 H Total Hemoglobin 16.1 O2 Delivery Device Cannula Oxygen Liter Flow 3.00 FiO2 % 32.0 Sodium Potassium Chloride Carbon Dioxide Anion Gap BUN Creatinine Estimated GFR (MDRD) BUN/Creatinine Ratio Glucose Lactic Acid Calcium Ferritin Total Bilirubin AST ALT Alkaline Phosphatase Lactate Dehydrogenase 259 H Troponin I C-Reactive Prot, Quant 19 H NT-Pro-B Natriuret Pep Total Protein Albumin Globulin Albumin/Globulin Ratio Urine Color Urine Clarity Urine pH Ur Specific [place] Urine Protein Urine Glucose (UA) Urine Ketones Urine Blood Urine Nitrite Urine Bilirubin Urine Urobilinogen Ur Leukocyte Esterase Influ A Molecular Assay Influ B Molecular Assay 07/29/21 07/30/21 07/30/21 05:12 05:01 05:17 WBC 10.39 H RBC 3.46 L Hgb 9.8 L Hct 29.1 L MCV 84.1 MCH 28.3 MCHC 33.7 RDW Coeff of Catherine 13.4 Plt Count 301 Immature Gran % (Auto) 3.9 Neut % (Auto) 72.2 Lymph % (Auto) 15.9 [place] % (Auto) 7.6 Eos % (Auto) 0.2 Baso % (Auto) 0.2 Neut # (Auto) 7.5 H Lymph # (Auto) 1.7 [place] # (Auto) 0.8 Eos # (Auto) 0.0 Baso # (Auto) 0.0 Immature Gran # (Auto) 0.4 Neutrophils % (Manual) Lymphocytes % (Manual) Monocytes % (Manual) Reactive Lymphocytes Anisocytosis PT INR Puncture Site Base Excess O2 Saturation ABG pH ABG pCO2 ABG pO2 ABG HCO3 ABG Total CO2 Jay[place] Test Hemoglobin Oxyhemoglobin Carboxyhemoglobin Total Hemoglobin O2 Delivery Device Oxygen Liter Flow FiO2 % Sodium 136.8 Potassium 3.59 Chloride 108.7 H Carbon Dioxide 20.6 L Anion Gap 11.09 BUN 15.1 Creatinine 0.79 Estimated GFR (MDRD) 70.00 BUN/Creatinine Ratio 19.11 Glucose 136.3 H Lactic Acid Calcium 8.27 L Ferritin 213.00 Total Bilirubin 0.53 AST 30.4 ALT 40.7 H Alkaline Phosphatase 66.4 Lactate Dehydrogenase 267 H Troponin I C-Reactive Prot, Quant 7 NT-Pro-B Natriuret Pep Total Protein 5.52 L Albumin 2.88 L Globulin 2.64 Albumin/Globulin Ratio 1.09 Urine Color Urine Clarity Urine pH Ur Specific [place] Urine Protein Urine Glucose (UA) Urine Ketones Urine Blood Urine Nitrite Urine Bilirubin Urine Urobilinogen Ur Leukocyte Esterase Influ A Molecular Assay Influ B Molecular Assay 07/30/21 07/31/21 07/31/21 05:17 05:09 05:09 WBC 11.08 H RBC 3.58 L Hgb 10.3 L Hct 30.1 L MCV 84.1 MCH 28.8 MCHC 34.2 RDW Coeff of Catherine 13.5 Plt Count 323 Immature Gran % (Auto) 3.8 Neut % (Auto) 73.9 Lymph % (Auto) 15.6 [place] % (Auto) 6.4 Eos % (Auto) 0.1 Baso % (Auto) 0.2 Neut # (Auto) 8.2 H Lymph # (Auto) 1.7 [place] # (Auto) 0.7 Eos # (Auto) 0.0 Baso # (Auto) 0.0 Immature Gran # (Auto) 0.4 Neutrophils % (Manual) Lymphocytes % (Manual) Monocytes % (Manual) Reactive Lymphocytes Anisocytosis PT INR Puncture Site Base Excess O2 Saturation ABG pH ABG pCO2 ABG pO2 ABG HCO3 ABG Total CO2 [place] Test Hemoglobin Oxyhemoglobin Carboxyhemoglobin Total Hemoglobin O2 Delivery Device Oxygen Liter Flow FiO2 % Sodium 136.6 136.3 Potassium 3.58 3.77 Chloride 107.6 H 105.6 Carbon Dioxide 23.9 24.2 Anion Gap 8.68 10.27 BUN 16.8 20.2 H Creatinine 0.80 0.90 Estimated GFR (MDRD) 69.00 60.00 BUN/Creatinine Ratio 21.00 22.44 Glucose 112.0 H 119.7 H Lactic Acid Calcium 8.58 8.97 Ferritin 208.00 220.00 Total Bilirubin 0.45 0.44 AST 40.3 H 43.7 H ALT 44.2 H 54.8 H Alkaline Phosphatase 63.0 64.9 Lactate Dehydrogenase Troponin I C-Reactive Prot, Quant NT-Pro-B Natriuret Pep Total Protein 5.61 L 5.92 L Albumin 2.88 L 3.17 L Globulin 2.73 2.75 Albumin/Globulin Ratio 1.05 1.15 Urine Color Urine Clarity Urine pH Ur Specific [place] Urine Protein Urine Glucose (UA) Urine Ketones Urine Blood Urine Nitrite Urine Bilirubin Urine Urobilinogen Ur Leukocyte Esterase Influ A Molecular Assay Influ B Molecular Assay Education Provided to Patient and Family: Covid-19 infection Follow-ups: Arranged with PCP. Discharge Disposition: Home Hospital Course: Admitted with mild hypoxemia from C-19 pneumonia. Never required more than 3 liters per NC. Made slow and steady improvement. She refused the remdesivir. At time of d/c, VSS and RA O2 sat 95% and lungs clear. D/C home with PCP F/U. Plan: D/C home. Follow-up with PCP as scheduled, sooner if needed.
--- NOTE | 2021-07-31 14:17 | PCM.DC ---
Final Diagnosis: COVID-19 pneumonia with hypoxemia (1) Pneumonia due to 2019-nCoV: Status: Acute Code(s): U07.1 - COVID-19; J12.82 - Pneumonia due to coronavirus disease 2018 SNOMED Code(s): 678151899174326200 (2) Weakness generalized: Status: Acute Code(s): R53.1 - Weakness SNOMED Code(s): 80131080 Reason for Hospitalization: COVID-19 pneumonia with mild hypoxemia. Admitted for supplemental oxygen. Refused remdesivir because of minor adverse reaction to regeneron as an outpatient. Prognosis/Condition at Discharge: Good Medications at Discharge: Ambulatory Orders Medication Instructions Recorded folic acid 1 mg tablet 1 mg PO DAILY 04/22/15 ascorbate calcium (vitamin C) 500 500 mg PO DAILY 06/28/15 mg tablet aspirin,buffered (calcium 325 mg PO EVERY OTHER DAY #15 05/08/17 carbonate-magnesium) 325 mg tablet tab-cap Prevnar 13 (PF) 0.5 mL 0.5 ml IM ONCE #0.5 ml NS 06/16/20 intramuscular syringe (pneumoc 13-owen conj-dip cr(PF)) omeprazole 20 mg capsule,delayed 20 mg PO QDAC PRN #90 tab-cap 08/31/20 release icosapent ethyl 1 gram capsule 2 g PO BID #120 cap 06/07/21 (Vascepa) levothyroxine 25 mcg tablet 25 mcg PO QDAY #30 tab 06/07/21 simvastatin 40 mg tablet 40 mg PO .bedtime #90 tab 07/19/21 amoxicillin 875 mg-potassium 1 tab PO BID 10 Days #20 tab 07/20/21 clavulanate 125 mg tablet (Augmentin) Lab/Diagnostics: Laboratory Tests 07/23/21 07/23/21 07/23/21 11:52 11:52 11:52 WBC 6.12 RBC 3.99 L Hgb 11.6 L Hct 33.4 L MCV 83.7 MCH 29.1 MCHC 34.7 RDW Coeff of Catherine 13.3 Plt Count 188 Immature Gran % (Auto) 0.7 Neut % (Auto) 69.2 Lymph % (Auto) 20.3 [place] % (Auto) 9.5 Eos % (Auto) 0.0 Baso % (Auto) 0.3 Neut # (Auto) 4.2 Lymph # (Auto) 1.2 [place] # (Auto) 0.6 Eos # (Auto) 0.0 Baso # (Auto) 0.0 Immature Gran # (Auto) 0.0 Neutrophils % (Manual) Lymphocytes % (Manual) Monocytes % (Manual) Reactive Lymphocytes Anisocytosis PT INR Puncture Site Base Excess O2 Saturation ABG pH ABG pCO2 ABG pO2 ABG HCO3 ABG Total CO2 [place] Test Hemoglobin Oxyhemoglobin Carboxyhemoglobin Total Hemoglobin O2 Delivery Device Oxygen Liter Flow FiO2 % Sodium 133.8 L Potassium 3.85 Chloride 102.8 Carbon Dioxide 23.0 Anion Gap 11.85 BUN 14.4 Creatinine 0.92 Estimated GFR (MDRD) 58.00 BUN/Creatinine Ratio 15.65 Glucose 109.3 H Lactic Acid 1.84 Calcium 8.73 Ferritin Total Bilirubin 0.34 AST 63.2 H ALT 39.4 H Alkaline Phosphatase 60.1 Lactate Dehydrogenase Troponin I < 0.012 C-Reactive Prot, Quant NT-Pro-B Natriuret Pep 227.000 Total Protein 6.62 Albumin 3.61 Globulin 3.01 Albumin/Globulin Ratio 1.19 Urine Color Urine Clarity Urine pH Ur Specific [place] Urine Protein Urine Glucose (UA) Urine Ketones Urine Blood Urine Nitrite Urine Bilirubin Urine Urobilinogen Ur Leukocyte Esterase Influ A Molecular Assay Influ B Molecular Assay 07/23/21 07/23/21 07/23/21 11:55 14:32 22:00 WBC RBC Hgb Hct MCV MCH MCHC RDW Coeff of Catherine Plt Count Immature Gran % (Auto) Neut % (Auto) Lymph % (Auto) [place] % (Auto) Eos % (Auto) Baso % (Auto) Neut # (Auto) Lymph # (Auto) [place] # (Auto) Eos # (Auto) Baso # (Auto) Immature Gran # (Auto) Neutrophils % (Manual) Lymphocytes % (Manual) Monocytes % (Manual) Reactive Lymphocytes Anisocytosis PT INR Puncture Site Rrad Base Excess -0.4 O2 Saturation 95.8 ABG pH 7.64 H* ABG pCO2 19.0 L ABG pO2 63.0 L ABG HCO3 20.5 L ABG Total CO2 21.1 [place] Test Pos Hemoglobin 0.6 Oxyhemoglobin 94.9 L Carboxyhemoglobin 1.3 Total Hemoglobin 11.9 O2 Delivery Device Oxygen Liter Flow FiO2 % 21.0 Sodium Potassium Chloride Carbon Dioxide Anion Gap BUN Creatinine Estimated GFR (MDRD) BUN/Creatinine Ratio Glucose Lactic Acid Calcium Ferritin Total Bilirubin AST ALT Alkaline Phosphatase Lactate Dehydrogenase Troponin I C-Reactive Prot, Quant NT-Pro-B Natriuret Pep Total Protein Albumin Globulin Albumin/Globulin Ratio Urine Color Yellow Urine Clarity Clear Urine pH 5.0 Ur Specific [place] 1.015 Urine Protein Negative Urine Glucose (UA) 2+ H Urine Ketones Trace H Urine Blood Negative Urine Nitrite Negative Urine Bilirubin Negative Urine Urobilinogen 0.2 Ur Leukocyte Esterase Negative Influ A Molecular Assay Negative by naat Influ B Molecular Assay Negative by naat 07/24/21 07/24/21 07/24/21 08:18 08:18 08:18 WBC RBC Hgb Hct MCV MCH MCHC RDW Coeff of Catherine Plt Count Immature Gran % (Auto) Neut % (Auto) Lymph % (Auto) [place] % (Auto) Eos % (Auto) Baso % (Auto) Neut # (Auto) Lymph # (Auto) [place] # (Auto) Eos # (Auto) Baso # (Auto) Immature Gran # (Auto) Neutrophils % (Manual) Lymphocytes % (Manual) Monocytes % (Manual) Reactive Lymphocytes Anisocytosis PT 9.6 INR 0.92 Puncture Site Base Excess O2 Saturation ABG pH ABG pCO2 ABG pO2 ABG HCO3 ABG Total CO2 [place] Test Hemoglobin Oxyhemoglobin Carboxyhemoglobin Total Hemoglobin O2 Delivery Device Oxygen Liter Flow FiO2 % Sodium Potassium Chloride Carbon Dioxide Anion Gap BUN Creatinine Estimated GFR (MDRD) BUN/Creatinine Ratio Glucose Lactic Acid Calcium Ferritin 372.00 H Total Bilirubin AST ALT Alkaline Phosphatase Lactate Dehydrogenase Troponin I C-Reactive Prot, Quant 13 H NT-Pro-B Natriuret Pep Total Protein Albumin Globulin Albumin/Globulin Ratio Urine Color Urine Clarity Urine pH Ur Specific [place] Urine Protein Urine Glucose (UA) Urine Ketones Urine Blood Urine Nitrite Urine Bilirubin Urine Urobilinogen Ur Leukocyte Esterase Influ A Molecular Assay Influ B Molecular Assay 07/24/21 07/25/21 07/26/21 08:18 04:45 04:25 WBC RBC Hgb Hct MCV MCH MCHC RDW Coeff of Catherine Plt Count Immature Gran % (Auto) Neut % (Auto) Lymph % (Auto) [place] % (Auto) Eos % (Auto) Baso % (Auto) Neut # (Auto) Lymph # (Auto) [place] # (Auto) Eos # (Auto) Baso # (Auto) Immature Gran # (Auto) Neutrophils % (Manual) Lymphocytes % (Manual) Monocytes % (Manual) Reactive Lymphocytes Anisocytosis PT INR Puncture Site Rbrach Lb Base Excess -2.7 L -1.9 O2 Saturation 93.0 L 89.6 L ABG pH 7.49 H 7.48 H ABG pCO2 27.0 L 29.0 L ABG pO2 61.0 L 53.0 L* ABG HCO3 20.6 L 21.6 ABG Total CO2 21.4 22.5 [place] Test Pos + Hemoglobin 0.7 0.7 Oxyhemoglobin 92.9 L 89.6 L Carboxyhemoglobin 2.0 H 1.8 H Total Hemoglobin 10.6 L 13.6 O2 Delivery Device Cannula Cannula Oxygen Liter Flow 3.00 3.00 FiO2 % 32.0 32.0 Sodium Potassium Chloride Carbon Dioxide Anion Gap BUN Creatinine Estimated GFR (MDRD) BUN/Creatinine Ratio Glucose Lactic Acid Calcium Ferritin Total Bilirubin AST ALT Alkaline Phosphatase Lactate Dehydrogenase 239 H Troponin I C-Reactive Prot, Quant NT-Pro-B Natriuret Pep Total Protein Albumin Globulin Albumin/Globulin Ratio Urine Color Urine Clarity Urine pH Ur Specific [place] Urine Protein Urine Glucose (UA) Urine Ketones Urine Blood Urine Nitrite Urine Bilirubin Urine Urobilinogen Ur Leukocyte Esterase Influ A Molecular Assay Influ B Molecular Assay 07/27/21 07/27/21 07/27/21 06:50 06:50 08:27 WBC 13.04 H RBC 3.70 L Hgb 10.6 L Hct 31.0 L MCV 83.8 MCH 28.6 MCHC 34.2 RDW Coeff of Catherine 13.2 Plt Count 259 Immature Gran % (Auto) 5.4 H Neut % (Auto) 71.5 Lymph % (Auto) 15.0 [place] % (Auto) 7.7 Eos % (Auto) 0.0 Baso % (Auto) 0.4 Neut # (Auto) 9.3 H Lymph # (Auto) 2.0 [place] # (Auto) 1.0 Eos # (Auto) 0.0 Baso # (Auto) 0.1 Immature Gran # (Auto) 0.7 Neutrophils % (Manual) Lymphocytes % (Manual) Monocytes % (Manual) Reactive Lymphocytes Anisocytosis PT INR Puncture Site Rbrach Base Excess 1.2 O2 Saturation 94.6 ABG pH 7.55 H* ABG pCO2 27.0 L ABG pO2 63.0 L ABG HCO3 23.6 ABG Total CO2 24.4 H [place] Test Hemoglobin 1.2 Oxyhemoglobin 93.4 L Carboxyhemoglobin 1.2 Total Hemoglobin 11.2 L O2 Delivery Device Nc Oxygen Liter Flow 3.00 FiO2 % Sodium 136.8 Potassium 3.47 L Chloride 108.6 H Carbon Dioxide 24.5 Anion Gap 7.17 BUN 14.8 Creatinine 0.82 Estimated GFR (MDRD) 67.00 BUN/Creatinine Ratio 18.04 Glucose 93.6 Lactic Acid Calcium 8.50 Ferritin Total Bilirubin 0.43 AST 47.6 H ALT 50.6 H Alkaline Phosphatase 63.5 Lactate Dehydrogenase Troponin I C-Reactive Prot, Quant NT-Pro-B Natriuret Pep Total Protein 5.80 L Albumin 3.06 L Globulin 2.74 Albumin/Globulin Ratio 1.11 Urine Color Urine Clarity Urine pH Ur Specific [place] Urine Protein Urine Glucose (UA) Urine Ketones Urine Blood Urine Nitrite Urine Bilirubin Urine Urobilinogen Ur Leukocyte Esterase Influ A Molecular Assay Influ B Molecular Assay 07/28/21 07/28/21 07/28/21 03:27 05:15 05:15 WBC RBC Hgb Hct MCV MCH MCHC RDW Coeff of Catherine Plt Count Immature Gran % (Auto) Neut % (Auto) Lymph % (Auto) [place] % (Auto) Eos % (Auto) Baso % (Auto) Neut # (Auto) Lymph # (Auto) [place] # (Auto) Eos # (Auto) Baso # (Auto) Immature Gran # (Auto) Neutrophils % (Manual) Lymphocytes % (Manual) Monocytes % (Manual) Reactive Lymphocytes Anisocytosis PT INR Puncture Site Lb Base Excess 1.8 O2 Saturation 93.3 L ABG pH 7.49 H ABG pCO2 33.0 L ABG pO2 62.0 L ABG HCO3 25.1 ABG Total CO2 26.1 H [place] Test + Hemoglobin 1.1 Oxyhemoglobin 92.2 L Carboxyhemoglobin 1.3 Total Hemoglobin 19.7 H O2 Delivery Device Oxygen Liter Flow FiO2 % 3.0 Sodium Potassium Chloride Carbon Dioxide Anion Gap BUN Creatinine Estimated GFR (MDRD) BUN/Creatinine Ratio Glucose Lactic Acid Calcium Ferritin 230.00 Total Bilirubin AST ALT Alkaline Phosphatase Lactate Dehydrogenase 300 H Troponin I C-Reactive Prot, Quant 9 NT-Pro-B Natriuret Pep Total Protein Albumin Globulin Albumin/Globulin Ratio Urine Color Urine Clarity Urine pH Ur Specific [place] Urine Protein Urine Glucose (UA) Urine Ketones Urine Blood Urine Nitrite Urine Bilirubin Urine Urobilinogen Ur Leukocyte Esterase Influ A Molecular Assay Influ B Molecular Assay 07/29/21 07/29/21 07/29/21 03:40 05:12 05:12 WBC 9.53 RBC 3.47 L Hgb 10.1 L Hct 29.0 L MCV 83.6 MCH 29.1 MCHC 34.8 RDW Coeff of Catherine 13.5 Plt Count 291 Immature Gran % (Auto) Neut % (Auto) Lymph % (Auto) [place] % (Auto) Eos % (Auto) Baso % (Auto) Neut # (Auto) Lymph # (Auto) [place] # (Auto) Eos # (Auto) Baso # (Auto) Immature Gran # (Auto) Neutrophils % (Manual) 81.0 H Lymphocytes % (Manual) 10.0 Monocytes % (Manual) 4.0 Reactive Lymphocytes 5.0 Anisocytosis Not present PT INR Puncture Site Lb Base Excess -1.7 O2 Saturation 93.8 L ABG pH 7.43 ABG pCO2 34.0 L ABG pO2 68.0 L ABG HCO3 22.6 ABG Total CO2 23.6 [place] Test + Hemoglobin 0.8 Oxyhemoglobin 91.6 L Carboxyhemoglobin 2.0 H Total Hemoglobin 16.1 O2 Delivery Device Cannula Oxygen Liter Flow 3.00 FiO2 % 32.0 Sodium Potassium Chloride Carbon Dioxide Anion Gap BUN Creatinine Estimated GFR (MDRD) BUN/Creatinine Ratio Glucose Lactic Acid Calcium Ferritin Total Bilirubin AST ALT Alkaline Phosphatase Lactate Dehydrogenase 259 H Troponin I C-Reactive Prot, Quant 19 H NT-Pro-B Natriuret Pep Total Protein Albumin Globulin Albumin/Globulin Ratio Urine Color Urine Clarity Urine pH Ur Specific [place] Urine Protein Urine Glucose (UA) Urine Ketones Urine Blood Urine Nitrite Urine Bilirubin Urine Urobilinogen Ur Leukocyte Esterase Influ A Molecular Assay Influ B Molecular Assay 07/29/21 07/30/21 07/30/21 05:12 05:01 05:17 WBC 10.39 H RBC 3.46 L Hgb 9.8 L Hct 29.1 L MCV 84.1 MCH 28.3 MCHC 33.7 RDW Coeff of Catherine 13.4 Plt Count 301 Immature Gran % (Auto) 3.9 Neut % (Auto) 72.2 Lymph % (Auto) 15.9 [place] % (Auto) 7.6 Eos % (Auto) 0.2 Baso % (Auto) 0.2 Neut # (Auto) 7.5 H Lymph # (Auto) 1.7 [place] # (Auto) 0.8 Eos # (Auto) 0.0 Baso # (Auto) 0.0 Immature Gran # (Auto) 0.4 Neutrophils % (Manual) Lymphocytes % (Manual) Monocytes % (Manual) Reactive Lymphocytes Anisocytosis PT INR Puncture Site Base Excess O2 Saturation ABG pH ABG pCO2 ABG pO2 ABG HCO3 ABG Total CO2 [place] Test Hemoglobin Oxyhemoglobin Carboxyhemoglobin Total Hemoglobin O2 Delivery Device Oxygen Liter Flow FiO2 % Sodium 136.8 Potassium 3.59 Chloride 108.7 H Carbon Dioxide 20.6 L Anion Gap 11.09 BUN 15.1 Creatinine 0.79 Estimated GFR (MDRD) 70.00 BUN/Creatinine Ratio 19.11 Glucose 136.3 H Lactic Acid Calcium 8.27 L Ferritin 213.00 Total Bilirubin 0.53 AST 30.4 ALT 40.7 H Alkaline Phosphatase 66.4 Lactate Dehydrogenase 267 H Troponin I C-Reactive Prot, Quant 7 NT-Pro-B Natriuret Pep Total Protein 5.52 L Albumin 2.88 L Globulin 2.64 Albumin/Globulin Ratio 1.09 Urine Color Urine Clarity Urine pH Ur Specific [place] Urine Protein Urine Glucose (UA) Urine Ketones Urine Blood Urine Nitrite Urine Bilirubin Urine Urobilinogen Ur Leukocyte Esterase Influ A Molecular Assay Influ B Molecular Assay 07/30/21 07/31/21 07/31/21 05:17 05:09 05:09 WBC 11.08 H RBC 3.58 L Hgb 10.3 L Hct 30.1 L MCV 84.1 MCH 28.8 MCHC 34.2 RDW Coeff of Catherine 13.5 Plt Count 323 Immature Gran % (Auto) 3.8 Neut % (Auto) 73.9 Lymph % (Auto) 15.6 [place] % (Auto) 6.4 Eos % (Auto) 0.1 Baso % (Auto) 0.2 Neut # (Auto) 8.2 H Lymph # (Auto) 1.7 [place] # (Auto) 0.7 Eos # (Auto) 0.0 Baso # (Auto) 0.0 Immature Gran # (Auto) 0.4 Neutrophils % (Manual) Lymphocytes % (Manual) Monocytes % (Manual) Reactive Lymphocytes Anisocytosis PT INR Puncture Site Base Excess O2 Saturation ABG pH ABG pCO2 ABG pO2 ABG HCO3 ABG Total CO2 [place] Test Hemoglobin Oxyhemoglobin Carboxyhemoglobin Total Hemoglobin O2 Delivery Device Oxygen Liter Flow FiO2 % Sodium 136.6 136.3 Potassium 3.58 3.77 Chloride 107.6 H 105.6 Carbon Dioxide 23.9 24.2 Anion Gap 8.68 10.27 BUN 16.8 20.2 H Creatinine 0.80 0.90 Estimated GFR (MDRD) 69.00 60.00 BUN/Creatinine Ratio 21.00 22.44 Glucose 112.0 H 119.7 H Lactic Acid Calcium 8.58 8.97 Ferritin 208.00 220.00 Total Bilirubin 0.45 0.44 AST 40.3 H 43.7 H ALT 44.2 H 54.8 H Alkaline Phosphatase 63.0 64.9 Lactate Dehydrogenase Troponin I C-Reactive Prot, Quant NT-Pro-B Natriuret Pep Total Protein 5.61 L 5.92 L Albumin 2.88 L 3.17 L Globulin 2.73 2.75 Albumin/Globulin Ratio 1.05 1.15 Urine Color Urine Clarity Urine pH Ur Specific [place] Urine Protein Urine Glucose (UA) Urine Ketones Urine Blood Urine Nitrite Urine Bilirubin Urine Urobilinogen Ur Leukocyte Esterase Influ A Molecular Assay Influ B Molecular [place] [address] Report : [id number] Signed Patient: COLLIN RALPH Acct:[id number] Medical Record: [id number] : 1935 Loc: ED Room/Bed: Age/Sex: 85 / F ADM Status: REG ER Date of Service: 07/23/21 Ordering Physician: DEJAH HOLT MD Procedure(s): CT CHEST W/O CONTRAST Report Number(s): [id number] Accession Number(s): [id number] cc: VAL JIMÉNEZ , TK, RECEIVING OPERATOR-BC; DEJAH HOLT MD EXAM: CT chest without contrast HISTORY: Shortness of breath and COVID-19 COMPARISON: Chest x-ray 07/17/[address] chest 01/03/2018 TECHNIQUE: Serial axial images of the chest were obtained from the lung apices to the upper abdomen without contrast. These were viewed in multiple planes. FINDINGS: The thyroid is normal. The visualized vessels demonstrate mild calcific atherosclerotic disease without aneurysm or stenosis. The heart is normal in size without pericardial effusion. There are no pathologically enlarged mediastinal or hilar lymph nodes. There is no pneumothorax or effusion. There is patchy nodular ground-glass and both lungs most pronounced in the periphery. There is no discrete consolidation. The airways are patent. Limited views of the soft tissues in the upper abdomen are unremarkable. There is degenerative disease of the spine. IMPRESSION: 1. Patchy nodular ground-glass and both lungs are suggestive of pneumonia. 2. Mild calcific atherosclerotic disease. Education Provided to Patient and Family: COVID-19 Follow-ups: Scheduled with PCP. Discharge Disposition: Home Hospital Course: Admitted with mild hypoxemia. Never needed more than 3 L per [place] oxgyen. Refused remdesivir. D/C with O2 sat 95% on RA. Stable VS. Out of quarantine. Plan: Home. Follow C-19 guidelines. Recheck.
[2021-08-01 04:09] LABS: C-REACTIVE PROTEIN 3 mg/L (0-10)
== END 2021-07-31 15:55 | disposition home or self-care (01) | DRG 177 ==
LOC: ED 11:07 → SCU 13:54 → MEDSURG A 07-29 17:40
PROVIDERS: ADMIT Emergency Medicine; ATTEND Emergency Medicine
DX: R53.1 Weakness; R09.02 Hypoxemia; U07.1 COVID-19; J12.82 Pneumonia due to coronavirus disease 2019